=== PATIENT | male | born 1960 | race Caucasian/White ===

== ENCOUNTER 2018-05-14 09:41 | Observation (INO) | payer OTHER, SELFPAY ==
[2018-05-14 09:53] VITALS: BP 124/81; PULSE 90; RESP 18; TEMP 37.8; O2SAT 94
--- NOTE | 2018-05-14 10:05 | DI.RAD_ITS ---
SYMPTOMS/DIAGNOSIS: CHEST PAIN, ? ACUTE DISEASE PA AND LATERAL CHEST: There is a probable small right pleural effusion. A region of infiltration involving the lower lung posteriorly may lie on the left side. The heart is not enlarged. There is some prominence of the right hilum when compared with the left side. The tracheal air column and mediastinum are intact. SUMMARY: Small right pleural effusion. Question left lower lobe pneumonitis. Follow up images to clearing are recommended. Please see the above discussion.
[2018-05-14 10:32] LABS: Abs Immature Grans 0.05 k/cumm (0.0-0.09); Absolute Eosinophil Count 0.08 k/cumm (0.0-0.7); Absolute Lymphocyte Count 1.43 k/cumm (1.2-3.4); Absolute Monocyte Count 1.39 k/cumm (0.11-0.7); Basophils % 0.1; Eosinophils % 0.6; HCT 40.5 % (40.0-50.0); HGB 13.4 g/dL (13.5-17.5); Immature Grans % 0.4; Lymphocytes % 10.5; Mean Corp. HGB Concentration 33.1 g/dL (32.0-36.0); Mean Corpuscular Hemoglobin 29.3 pg (27.0-33.0); Mean Corpuscular Volume 88.6 fL (80-95); Mean Platelet Volume 9.4 fL (8.0-11.0); Monocytes % 10.2; Neutrophils % 78.2; Platelet Count 280 x1000/uL (130-400); RBC 4.57 m/cumm (4.50-6.00); RBC Distribution Width 13.3 % (11.8-14.1); White Blood Cell Count 13.59 k/cumm (4.4-10.8)
[2018-05-14 10:33] LABS: Absolute Basophil Count 0.01 k/cumm (0.0-0.2); Absolute Neutrophil Count 10.63 k/cumm (1.2-6.7)
--- NOTE | 2018-05-14 10:34 | ED.GENADUL_ITS ---
Discharge Plan Disposition Patient Disposition: [facility] INPATIENT Condition: Stable Discharge Details Chief Complaint: Chest Pain Clinical Impression: Pulmonary emboli, Pneumonia Reason For Visit: BILATERAL PULMONARY EMBOLI Admit Date/Time: 05/14/18 18:13 Admit Provider: Rohith Nj Attending Provider: Rohith Nj Primary Care Provider: Silvana Huertas ED Provider: Bisi Swanson Discharge Data Discharge Date/Time-TO BE ENTERED AT DEPARTURE: 05/14/18 19:00 Medical Decision Making 58yo M U who presents with shortness of breath with exertion, cough with chest congestion and chills for 3 weeks, and right-sided chest pain worse with movement, cough and supine for the past 3 days. Admits to recent long car ride approximately 14 hours 2 weeks ago, staying in a closed up musty trailer, and exposure to sick contact with cold. Temp 100. O2 sat 92-94% on room air. Remainder vitals within normal limits. Patient appears nontoxic and in no acute distress. He has diminished breath sounds with crackles at bases bilaterally. He has <1+ pitting edema left lower extremity. Differential diagnosis includes pneumonia, bronchitis, PE, CHF. As symptoms present for a few weeks, associated with cough and chest congestion, MA less likely. EKG notes a rate of 86, sinus, occasional PACs, but no acute ST elevation or depression. QTc 464. QRS 92. Will place an IV, cardiac workup including d-dimer, BNP, chest x-ray and give a DuoNeb and reassess. 1100 --improvement in breath sounds after neb treatment, still noted crackles bases bilaterally. Chest x-ray reviewed with radiologist and notes possible infiltrate in bases. Small right pleural effusion. Will give another neb treatment and a dose of p.o. antibiotics. Troponin negative. 1300 --discussed with radiologist -CT chest notes bilateral upper and lower lobe pulmonary emboli, RV strain, right lower lobe infiltrate vs infarct. Vitals stable at this time. Patient appears nontoxic and comfortable and in no respiratory distress. Will admit for anticoagulation, further workup. 1335 --d/w hospitalist - recommend transfer to [facility] for possible IR/ pulmonology. Pt agreeable to plan. 1435 --discussed with [facility] cardiology -discussed that therapeutic anticoagulation is the standard of care in this case, but if consideration for IR, would have held anticoagulation. Will review the images to discuss whether IR would be recommended and call back. Recommends echocardiogram if possible. 1714 --echo done - d/w cardiology Dr. Ramirez who reviewed echo - no evidence of RV strain, right ventricle function normal. Elevated pulmonary artery pressures. 1834 --d/w [facility] cardiology -- long delay in response after multiple calls to [facility]. As patient has normal troponin, BNP and is hemodynamically stable , recommend that patient be treated medically with therapeutic anticoagulation. They were informed of echo results. Recommend that if patient deteriorates or develops a positive troponin, he can be transferred to [facility]. 1844 --d/w Dr. Nj -accepts patient for admission. HPI General Mode of arrival: ambulatory . Date/Time Provider Initiated Documentation: 05/14/18 10:01 . Limitations to Documentation: no limitations . Information obtained by: patient . HPI Narrative: Patient is a 58-year-old male who presents to the ED with complaint of I think I have pneumonia. He c/o shortness of breath with exertion for the past 2 weeks, associated with cough and chest congestion, and right-sided chest pain that started 3 days ago. Patient denies any sputum production. Patient admits to chills. He states his chest pain is intermittent stabbing, worse with movement, when laying flat, and with coughing. He states his chest pain is 8/10 at its worst and denies any chest pain at present. He denies any radiation of pain. Patient took Advil at 4 AM and 8 AM this morning. Patient states he recently traveled to [place] with a 14-hour car ride but he stopped every 3-4 hours to walk around. He states he was staying in health system at that time and was also exposed to a sick child so thinks he may have been exposed to something. He denies recent surgery , recent antibiotics or recent hospital admission. Past medical history: HLD Surgical history: Knee arthroscopy, Nose repair Social history: Quit tobacco, Occasional ETOH, Denies drugs Meds: Aspirin Allergies: Lisinopril PCP: Silvana Huertas Related Data Home Medications Medication Instructions Recorded Confirmed aspirin [Aspir 81] 81 mg PO DAILY tab-cap 08/03/15 01/03/16 Allergies Allergy/AdvReac Type Severity Reaction Status Date / Time lisinopril Tabs AdvReac dizziness Uncoded 01/03/16 06:55 General Stated Complaint: Chest Pain JERE: 3 Review of Systems Review of Systems All systems reviewed & are unremarkable except as noted in HPI and below Constitutional Reports chills, Denies excessive sweating, Denies fatigue, Denies fever(s), Denies weakness and Denies weight loss Eyes Reports system reviewed and no additional complaints, except as docu and Denies blurry vision ENT Denies vertigo, Denies dizziness, Denies otalgia, Denies nasal congestion, Denies sore throat and Denies throat swelling Cardiovascular Reports chest pain, Denies syncope, Denies rapid heart rate, Reports dyspnea and Reports dyspnea on exertion Respiratory Reports chest congestion, Reports cough, Reports pain with cough, Reports dyspnea and Reports dyspnea on exertion Gastrointestinal Denies abdominal pain, Denies diarrhea and Denies vomiting Genitourinary Denies hematuria, Denies dysuria and Denies flank pain Musculoskeletal Denies back pain and Denies joint swelling Integumentary/Breasts Denies lesions and Denies rash Neurologic Denies behavioral changes, Denies confusion, Denies vertigo, Denies dizziness, Denies syncope and Denies weakness Psychiatric Denies behavioral changes, Denies confusion and Denies depression Endocrine Denies excessive sweating and Denies fatigue Hematologic/Lymphatic Denies easy bruising and Denies lymphadenopathy Allergic/Immunologic Denies throat swelling [facility] Family History Mother Personal history of malignant neoplasm Father Essential hypertension Sister No problems noted. Brother No problems noted. Brother No problems noted. Son Hyperlipidemia Daughter Hyperlipidemia Medical History Benign essential hypertension (Chronic) Hyperlipidemia (Chronic) Overweight (Chronic) Acute medial meniscus tear (Resolved) History of multiple concussions (Resolved) Pain, joint, shoulder (Resolved) Right lumbar radiculopathy (Resolved) prepatellar Bursitis (Resolved) Social History Smoking/Tobacco Use Status: Former Tobacco Use Surgical History Colonoscopy - IV Sedation (Resolved 01/03/16) medial meniscus tear (Resolved) Exam Const General: cooperative and healthy appearing Orientation: alert and awake [facility] Head: normal to inspection Ears: hearing grossly normal bilaterally and external ears normal General nose exam: external nose normal Face and sinus: normal facial exam Mouth: oral mucosae normal Teeth and gingiva: dentition normal Throat: posterior oropharynx normal Eyes General: appearance normal, both eyes and all related structures Eyelids: eyelids normal EOM: EOM intact bilaterally Neck Neck: normal visual inspection Lymphatic: no lymphadenopathy noted Chest Chest: normal inspection of the chest, normal palpation of entire chest wall, no crepitus and no tenderness Resp Effort & Inspection: normal respiratory effort and able to speak in complete sentences Auscultation: crackles bilaterally, diminished lung sounds bilaterally and no wheezes Cardio Rate: regular rate Rhythm: regular rhythm GI Inspection: normal to inspection Palpation: soft, not firm, no guarding, no hepatosplenomegaly, no masses and nontender Auscultation: normal bowel sounds Skin General skin exam: no rashes or lesions noted Neuro General: alert and awake Cognition: normal cognition Speech: speech normal Gait: normal gait Motor: muscle tone normal throughout Sensory Exam: no sensory deficits noted Extrem General: normal to inspection, full ROM, normal capillary refill and edema (<1+ pitting edema LLE) Laterality: left (<1+ pitting edema) Psych Appearance: grossly normal Mental Status: mental status grossly normal Speech and Movement: speech and movement normal Affect: normal affect Thought Process: normal Course 05/14/18 15:23 Blood Blood Culture - Pending 05/14/18 14:10 Blood Blood Culture - Pending Laboratory Tests Range/Units 05/14/18 05/14/18 05/14/18 10:15 10:15 10:15 WBC (4.4-10.8) k/cumm 13.59 H RBC (4.50-6.00) m/cumm 4.57 Hgb (13.5-17.5) g/dL 13.4 L Hct (40.0-50.0) % 40.5 MCV (80-95) fL 88.6 MCH (27.0-33.0) pg 29.3 MCHC (32.0-36.0) g/dL 33.1 RDW (11.8-14.1) % 13.3 Plt Count (130-400) x1000/uL 280 MPV (8.0-11.0) fL 9.4 Immature Gran % 0.4 Neutrophils % 78.2 Lymphocytes % 10.5 Monocytes % 10.2 Eosinophils % 0.6 Basophils % 0.1 Absolute Neutrophils (1.2-6.7) k/cumm 10.63 H Absolute Lymphocytes (1.2-3.4) k/cumm 1.43 Absolute Monocytes (0.11-0.7) k/cumm 1.39 H Absolute Eosinophils (0.0-0.7) k/cumm 0.08 Absolute Basophils (0.0-0.2) k/cumm 0.01 PT (9.3-10.8) sec INR (1.0-3.5) APTT (21.0-31.4) sec D-Dimer (<500) ng/mlFEU Sodium (136-145) mmol/L 137 Potassium (3.5-5.1) mmol/L 3.9 Chloride (98-107) mmol/L 99 Carbon Dioxide (21.0-32.0) mmol/L 26.7 Anion Gap (3-11) mmol/L 11.3 H BUN (7-18) mg/dL 12 Creatinine (0.70-1.30) mg/dL 1.08 Estimated GFR/1.73 m2 (mL/min/1.73m2) >= 60.00 Glucose (70-100) mg/dL 123 H Lactate (0.6-1.4) mmol/L Calcium (8.5-10.1) mg/dL 9.7 Magnesium (1.8-2.4) mg/dL 1.7 L Total Bilirubin (0.2-1.0) mg/dL 0.7 AST (15-37) U/L 24 ALT (12-78) U/L 33 Alkaline Phosphatase (46-116) U/L 64 Troponin I (0.00-0.06) ng/mL < 0.02 NT-Pro-B Natriuret Pep ( - 299) pg/mL 45 Total Protein (6.4-8.2) g/dL 8.6 H Albumin (3.4-5.0) g/dL 3.6 Range/Units 05/14/18 05/14/18 05/14/18 10:15 10:15 15:23 WBC (4.4-10.8) k/cumm RBC (4.50-6.00) m/cumm Hgb (13.5-17.5) g/dL Hct (40.0-50.0) % MCV (80-95) fL MCH (27.0-33.0) pg MCHC (32.0-36.0) g/dL RDW (11.8-14.1) % Plt Count (130-400) x1000/uL MPV (8.0-11.0) fL Immature Gran % Neutrophils % Lymphocytes % Monocytes % Eosinophils % Basophils % Absolute Neutrophils (1.2-6.7) k/cumm Absolute Lymphocytes (1.2-3.4) k/cumm Absolute Monocytes (0.11-0.7) k/cumm Absolute Eosinophils (0.0-0.7) k/cumm Absolute Basophils (0.0-0.2) k/cumm PT (9.3-10.8) sec 10.5 INR (1.0-3.5) 1.1 APTT (21.0-31.4) sec 25.8 D-Dimer (<500) ng/mlFEU 3632 H Sodium (136-145) mmol/L Potassium (3.5-5.1) mmol/L Chloride (98-107) mmol/L Carbon Dioxide (21.0-32.0) mmol/L Anion Gap (3-11) mmol/L BUN (7-18) mg/dL Creatinine (0.70-1.30) mg/dL Estimated GFR/1.73 m2 (mL/min/1.73m2) Glucose (70-100) mg/dL Lactate (0.6-1.4) mmol/L 1.1 Calcium (8.5-10.1) mg/dL Magnesium (1.8-2.4) mg/dL Total Bilirubin (0.2-1.0) mg/dL AST (15-37) U/L ALT (12-78) U/L Alkaline Phosphatase (46-116) U/L Troponin I (0.00-0.06) ng/mL NT-Pro-B Natriuret Pep ( - 299) pg/mL Total Protein (6.4-8.2) g/dL Albumin (3.4-5.0) g/dL Vital Signs Temperature 100.0 F H 05/14/18 09:53 Pulse 90 05/14/18 09:53 Respiratory Rate 18 05/14/18 09:53 Blood Pressure 124/81 05/14/18 09:53 Pulse Oximetry 94 L 05/14/18 09:53 Temperature 100.0 F H 05/14/18 09:53 Temperature Source Temporal Artery Scan 05/14/18 09:53 Pulse 90 05/14/18 09:53 Respiratory Rate 18 05/14/18 09:53 Respiratory Effort 05/14/18 09:55 Respiratory Depth Normal 05/14/18 09:55 Respiratory Pattern Normal 05/14/18 09:55 Blood Pressure 124/81 05/14/18 09:53 Blood Pressure Position Sitting 05/14/18 09:53 Pulse Oximetry 94 L 05/14/18 09:53 Oxygen Delivery Method Room Air 05/14/18 09:53 Oxygen Flow Rate 0 05/14/18 09:53 Pain Level 6 05/14/18 09:53
[2018-05-14] MEDS: Albuterol/Ipratropium 3 ML UPD VIAL UPD (10:42)
[2018-05-14 10:48] LABS: ALT 33 U/L (12-78); AST 24 U/L (15-37); Albumin 3.6 g/dL (3.4-5.0); Alkaline Phosphatase 64 U/L (46-116); Anion Gap 11.3 mmol/L (3-11); BUN 12 mg/dL (7-18); Bilirubin, Total 0.7 mg/dL (0.2-1.0); CO2 26.7 mmol/L (21.0-32.0); CREATININE 1.08 mg/dL (0.70-1.30); Calcium 9.7 mg/dL (8.5-10.1); Chloride 99 mmol/L (98-107); Glucose 123 mg/dL (70-100); Magnesium 1.7 mg/dL (1.8-2.4); Potassium 3.9 mmol/L (3.5-5.1); Sodium 137 mmol/L (136-145); Total Protein 8.6 g/dL (6.4-8.2)
[2018-05-14 10:49] LABS: Troponin I < 0.02 ng/mL (0.00-0.06)
[2018-05-14 11:10] LABS: NT-proBNP 45 pg/mL
[2018-05-14 11:12] LABS: D-Dimer 3632 ng/mlFEU (<500)
[2018-05-14] MEDS: Albuterol 2.5 MG/3 ML INH SOLN VIAL UPD (11:20)
[2018-05-14] MEDS: Doxycycline Hyclate 100 MG CAP PO (11:20)
[2018-05-14 11:49] LABS: INR 1.1 (1.0-3.5); PTT Activated 25.8 sec (21.0-31.4); Prothrombin Time 10.5 sec (9.3-10.8)
--- NOTE | 2018-05-14 12:30 | DI.CT_ITS ---
SYMPTOMS/DIAGNOSIS: HYPOXIA, SHORTNESS OF BREATH, ELEVATED D DIMER, ? PE PE CHEST CTA: CT angiography was performed with multi slice acquisition and multi planar and 3D reconstruction. The study was conducted according to the usual protocol with an intravenous administration of 100 cc's of Omnipaque 350. There are emboli in the upper and lower lobe pulmonary artery branches in both lungs. There is no evidence of a saddle embolus or embolus involving the right and left main pulmonary artery. There are some small pulmonary densities in the left lung base which likely represent regions of atelectasis. There is no evidence of an aortic aneurysm or dissection. Note is made of degenerative changes involving the dorsal spine. No acute bony abnormality is identified. The visualized portions of the liver are intact. The gallbladder is decompressed. The pancreas is unremarkable. The spleen is intact. The kidneys are incompletely demonstrated. The adrenals appear to be intact. SUMMARY: Bilateral upper and lower lobe pulmonary emboli are demonstrated as described above. There is a small right pleural effusion and a region of increased density in the lateral portion of the right lower lobe which could well represent an infarct. An acute pneumonitis could not be excluded. Note is also made of right ventricular strain. Please see the above discussion.
[2018-05-14] MEDS: Omnipaque 350 MG/ML 100 ML BTL IJ (12:33)
[2018-05-14] MEDS: Enoxaparin 100 MG/ML SYR SC (14:11)
--- NOTE | 2018-05-14 15:20 | MERGE_ITS ---
*[facility]* *[facility]* [address] [place] [address] Date of study: 05/14/2018 Transthoracic Echocardiography M-mode, complete 2D, complete spectral Doppler, and color Doppler *STUDY CONCLUSIONS* Summary: 1. Left ventricle: The cavity size was normal. Wall thickness was at the upper limits of normal. Systolic function was normal. The estimated ejection fraction was 60-65%. Wall motion was normal; there were no regional wall motion abnormalities. 2. Right ventricle: The cavity size was at the upper limits of normal. Systolic function was normal. Possible apical RV hypokinesia. 3. Pulmonary arteries: Pulmonary systolic pressure was increased, in the range of 50mm Hg to 55mm Hg. 4. Inferior vena cava: The vessel was patent and normal in size. The respirophasic diameter changes were in the normal range (greater than or equal to 50%), consistent with normal central venous pressure. *PATIENT PRESENTATION* Height: 177.8cm ((70in) ) S/D Pressure: 132 / 78 Weight: 104.3kg ((229.5lb) ) BSA: 2.3m^2 Test start time: 03:30 PM. Test stop time: 04:10 PM. PERFORMING Unknown PERFORMING [facility] DIRECTOR OF COMMUNICATIONS RT Micheal (R)(CT), [facility] ORDERING Bisi Swanson REFERRING Bisi Swanson *PROCEDURE DATA* Procedure information: The patient was identified by two identifiers. This study was interpreted by [facility]. Pertinent images and digital data are archived for permanent storage and are available for subsequent review. Study status: STAT. Transthoracic echocardiography. M-mode, complete 2D, complete spectral Doppler, and color Doppler. A Transthoracic Echocardiogram was performed. Scanning was performed from the parasternal, apical, subcostal, and suprasternal notch acoustic windows. Images were obtained using an [id number] cardiac ultrasound machine. Image quality was adequate. Study completion: The patient tolerated the procedure well. There were no complications. History: PMH: Bilateral PE assess for RV strain. *CARDIAC ANATOMY* Left ventricle: The cavity size was normal. Wall thickness was at the upper limits of normal. Systolic function was normal. The estimated ejection fraction was 60-65%. Wall motion was normal; there were no regional wall motion abnormalities. Findings consistent with diastolic dysfunction. There was no evidence of elevated ventricular filling pressure by Doppler parameters. Aortic valve: Trileaflet; mildly thickened leaflets. Mobility was not restricted. Doppler: Transvalvular velocity was within the normal range. There was no stenosis. There was no significant regurgitation. VTI ratio of LVOT to aortic valve: 0.79. Valve area (VTI): 3cm^2. Indexed valve area (VTI): 1.3cm^2/m^2. Peak velocity ratio of LVOT to aortic valve: 0.77. Valve area (Vmax): 2.9cm^2. Indexed valve area (Vmax): 1.3cm^2/m^2. Mean velocity ratio of LVOT to aortic valve: 0.89. Valve area (Vmean): 3.3cm^2. Indexed valve area (Vmean): 1.4cm^2/m^2. Mean gradient (S): 4.9mm Hg. Peak gradient (S): 10.7mm Hg. Aorta: Aortic root: The aortic root was normal in size. Ascending aorta: The ascending aorta was normal in size. Aortic arch: The aortic arch was mildly dilated (40 mm). Mitral valve: Mildly thickened leaflets. Mobility was not restricted. Doppler: Transvalvular velocity was within the normal range. There was no evidence for stenosis. There was no significant regurgitation. Valve area by pressure half-time: 2.6cm^2. Indexed valve area by pressure half-time: 1.1cm^2/m^2. Left atrium: The atrium was normal in size. Right ventricle: The cavity size was at the upper limits of normal. Systolic function was normal. Possible apical RV hypokinesia. Pulmonic valve: Poorly visualized. Doppler: Transvalvular velocity was within the normal range. There was no evidence for stenosis. There was trivial regurgitation. Tricuspid valve: Structurally normal valve. Doppler: Transvalvular velocity was within the normal range. There was no evidence for stenosis. There was mild regurgitation. Pulmonary artery: Poorly visualized. Pulmonary systolic pressure was increased, in the range of 50mm Hg to 55mm Hg. Right atrium: The atrium was normal in size. Pericardium: There was no pericardial effusion. Systemic veins: Inferior vena cava: Well visualized. The vessel was patent and normal in size. The respirophasic diameter changes were in the normal range (greater than or equal to 50%), consistent with normal central venous pressure. Baseline ECG: Normal sinus rhythm. Measurements Left ventricle Value Reference LV ID, ED, PLAX 5.3 cm 3.5 - 6.0 LV ID, ES, PLAX 3.5 cm 2.1 - 4.0 LV PW thickness, ED, PLAX 1.1 cm LV end-diastolic volume, 1-p A2C 65 ml LV ejection fraction, 1-p A2C 53 % LV end-diastolic volume, 1-p A4C 85 ml LV ejection fraction, 1-p A4C 67 % LV e', lateral 0.154 m/sec LV E/e', lateral 4 LV e', medial 0.078 m/sec LV E/e', medial 8 LV e', average 0.116 m/sec LV E/e', average 5 Ventricular septum Value Reference IVS thickness, ED, PLAX 1.1 cm LVOT Value Reference LVOT ID, A-P 2.2 cm LVOT area 3.8 cm^2 LVOT peak velocity, S 1.26 m/sec LVOT mean velocity, S 0.91 m/sec LVOT VTI, S 19.8 cm LVOT peak gradient, S 6.3 mm Hg LVOT mean gradient, S 3.6 mm Hg Stroke volume (SV), LVOT DP 74 ml Stroke index (SV/bsa), LVOT DP 32 ml/m^2 Aortic valve Value Reference Aortic valve peak velocity, S 1.6 m/sec Aortic valve mean velocity, S 1.02 m/sec Aortic valve VTI, S 25.0 cm Aortic mean gradient, S 4.9 mm Hg Aortic peak gradient, S 10.7 mm Hg VTI ratio, LVOT/AV 0.79 Aortic valve area, VTI 3 cm^2 Velocity ratio, peak, LVOT/AV 0.77 Aortic valve area, peak velocity 2.9 cm^2 Velocity ratio, mean, LVOT/AV 0.89 Aortic valve area, mean velocity 3.3 cm^2 Aortic valve area/bsa, mean velocity 1.4 cm^2/m^2 Aorta Value Reference Aortic root ID, ED 3.6 cm Ascending aorta ID, A-P, S 3.6 cm Left atrium Value Reference LA ID, A-P, ES 3.9 cm LA ID/bsa, A-P 1.7 cm/m^2 <=2.2 LA area, ES, A4C 20.7 cm^2 8.8 - 23.4 LA area, ES, A2C 17 cm^2 LA volume/bsa, ES, 1-p A4C 28 ml/m^2 LA volume, ES, 2-p 55 ml LA volume/bsa, ES, 2-p 24 ml/m^2 LA/aortic root ratio 1.08 Mitral valve Value Reference Mitral E-wave peak velocity 0.63 m/sec Mitral A-wave peak velocity 0.68 m/sec Mitral deceleration time (H) 292 ms 150 - 230 Mitral pressure half-time 85 ms Mitral E/A ratio, peak 0.94 Mitral valve area, PHT, DP 2.6 cm^2 Pulmonary veins Value Reference Pulmonary vein peak velocity, S 0.62 m/sec Pulmonary vein peak velocity, D 0.4 m/sec Pulmonary vein velocity ratio, peak, 1.57 S/D Pulmonary vein A-wave reversal peak 0.85 m/sec velocity Tricuspid valve Value Reference Tricuspid regurg peak velocity 3.7 m/sec Tricuspid peak RV-RA gradient 53.8 mm Hg Right atrium Value Reference RA area, ES, A4C 19.2 cm^2 8.3 - 19.5 Legend: (L) and (H) chantal values outside specified reference range. I have personally reviewed the images and have reviewed and edited the reported findings. Electronically signed by Vik Ramirez 05/14/2018 17:20
[2018-05-14 15:21] VITALS: BP 120/84; PULSE 88; RESP 18; TEMP 36.7; O2SAT 97
[2018-05-14 15:23] VITALS: BP 142/78; PULSE 66; RESP 18; TEMP 36.8; O2SAT 95
[2018-05-14 15:26] LABS: Lactate-non-spesis 1.1 mmol/L (0.6-1.4)
[2018-05-14 19:21] VITALS: BP 144/76; PULSE 94; RESP 20; TEMP 37.9; O2SAT 96
[2018-05-14 19:56] VITALS: BP 144/76; PULSE 94; RESP 20; TEMP 37.9; O2SAT 96
--- NOTE | 2018-05-14 21:45 | W.PM.HP.N ---
Date of service: 05/14/18 Time of Service: 21:45 Assessment and Plan (1) Pulmonary embolism and infarction: Current visit: Yes Status: Acute continue lovenox at 1 mg/kg SC Q12hr. I will move his next dose up by an hour in an attempt to adjust his lovenox dosing to evening and daytime hours so he will not have to get up during the night to receive a dose. However, I think that he is a good candidate for Apixaban therapy and if he is started on Eliquis tomorrow then he will not need to continue the lovenox shots. He would rather take the Apixaban than warfarin and lovenox. It appears that he had a provoked thromboembolism event, i.e. left ankle injury followed by immobilization and he has no signs/symptoms of occult cancer therefore I do not feel that further evaluation for occult malignancy is necessary. History of Present Illness Chief Complaint: Shortness of breath and chest pain, I think I have pneumonia Narrative: 58-year-old male with a history of hyperlipidemia and alleged hypertension. Patient presents to the hospital w/ 2 weeks of exertional dypsnea and 3 days of right sided pleuritic chest pain. 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 He recently traveled to [place], [place] for race around 05/04-05/05. Three days prior to going to [employer] he twised his left ankle while splitting wood and developed acute swelling and ankle pain. He drove 16 hours down to [place] with his crew from [facility] (he is originally from [facility].) and says that he was on his feet a lot standing around the pit crew. He noticed on the first day down there that he was rather short of breath while walking out of the bowl which is the race track. Each day his dyspnea was worse but he attributed this to a cold as he had been around others who were sick. When he returned to [place] (he lives in [place], [place]) he noticed that he could not walk the dog w/out getting out of breath. Beginning Saturday, he was having sharp right sided pleuritic chest pains. He called his PCP on Saturday for an appointment but when his chest pains grew worse today, he decided to come to the ER. Dr. Bisi Swanson evaluate the patient and performed a workup including labs chest x-ray and ultimately a CTA of his chest. He was diagnosed with bilateral pulmonary emboli and a right pleural effusion and a possible right-sided pulmonary infarct. PA and lateral chest x-ray showed a small right pleural effusion and questionable left lower lobe pneumonitis. CTA of the chest demonstrate bilateral upper and lower lobe pulmonary emboli and small right pleural effusion and increased density in the lateral portion of the right lower lobe which was felt to represent an infarct. Also the radiologist suggested the possibility of right ventricular strain. Dr. Swanson indicated that she spoke with cardiology at [facility] and had them review his CTA to evaluate him for possible transfer for acute interventional radiology intravascular thrombolysis. After they reviewed his case and his CTA they decided that he could be medically managed here at [facility]. An echocardiogram was performed and showed normal left ventricular size and function in the right ventricle was at the upper limits of normal with normal systolic function although possible apical RV hypokinesia could not be excluded. Patient has increased pulmonary pressures with a systolic pressure of 50-55 mm. The IVC was patent and normal in size and showed normal respirophasic diameter changes. He was subsequently treated with Lovenox 100 mg subcutaneously and is now admitted for further treatment of his pulmonary embolus. Review of Systems Constitutional Reports as per HPI Cardiovascular Reports as per HPI, Reports chest pain, Reports dyspnea and Reports dyspnea on exertion Respiratory Reports as per HPI, Denies chest congestion, Reports cough (Nonproductive), Denies hemoptysis, Reports dyspnea and Reports dyspnea on exertion Gastrointestinal Reports system reviewed and no additional complaints, except as docu Musculoskeletal Reports system reviewed and no additional complaints, except as docu Hematologic/Lymphatic Reports system reviewed and no additional complaints, except as docu PFSH Family History Mother Personal history of malignant neoplasm Father Essential hypertension Sister No problems noted. Brother No problems noted. Brother No problems noted. Son Hyperlipidemia Daughter Hyperlipidemia Medical History Benign essential hypertension (Chronic) Hyperlipidemia (Chronic) Overweight (Chronic) Acute medial meniscus tear (Resolved) History of multiple concussions (Resolved) Pain, joint, shoulder (Resolved) Right lumbar radiculopathy (Resolved) prepatellar Bursitis (Resolved) Social History Smoking/Tobacco Use Status: Former Tobacco Use Surgical History Colonoscopy - IV Sedation (Resolved 01/03/16) medial meniscus tear (Resolved) Meds Home Medications Medication Instructions Recorded Confirmed Type aspirin [Aspir 81] 81 mg PO DAILY tab-cap 08/03/15 01/03/16 History Allergies Allergy/AdvReac Type Severity Reaction Status Date / Time lisinopril Tabs AdvReac dizziness Uncoded 01/03/16 06:55 Exam Const General: cooperative, healthy appearing, comfortable, no acute distress, well developed and well groomed Nutritional Appearance: overweight Orientation: alert, awake and oriented x3 HENMT Head: normal to inspection, normocephalic and atraumatic Ears: external ears normal and TM's normal bilaterally General nose exam: external nose normal Face and sinus: normal facial exam Mouth: oral mucosae normal Eyes General: appearance normal, both eyes and all related structures Visual Reed: normal visual reed by confrontation Periorbital: periorbital findings normal Eyelids: eyelids normal Conjunctivae: conjunctivae normal Sclera: sclerae normal Cornea: corneas normal Pupils: PERRL and normal by confrontation EOM: EOM intact bilaterally Neck Neck: normal visual inspection, full ROM, no lymphadenopathy, trachea midline, supple and no JVD Thyroid: thyroid normal Carotids: normal carotid upstroke Lymphatic: no lymphadenopathy noted Resp Effort & Inspection: normal respiratory effort and able to speak in complete sentences Auscultation: crackles bilaterally at the base, no rhonchi, no wheezes and no rubs Tactile Fremitus: tactile fremitus absent Cardio Jugular venous pressure: no JVD Palpation: normal PMI Rate: regular rate Rhythm: regular rhythm Heart Sounds: S1 normal, S2 normal, normal, physiologic split S2, no gallops, no murmurs and no rubs Bruits: no abdominal aortic bruits and no carotid bruits Pulses: normal peripheral pulses GI Inspection: normal to inspection Palpation: soft and no hepatosplenomegaly Auscultation: normal bowel sounds Back/Spine/Pelvis Back: no CVA tenderness Cervical Spine: normal cervical lordosis Thoracic/Lumbar Spine: thoracic and lumbar spine normal to inspection Skin General skin exam: no rashes or lesions noted, elasticity normal and turgor normal Lesions: no lesions Rashes: no rashes Trauma: no lacerations or abrasions Wounds: no wounds Neuro General: alert, awake, oriented x3, moves all extremities, normal light touch, pain and propioception, no focal motor deficits, CN's II-XI intact bilaterally and deep tendon reflexes 2+ bilaterally Cognition: normal cognition Speech: speech normal Gait: normal gait Motor: muscle tone normal throughout, strength 5/5 throughout, no pronator drift, no movement abnormalities noted and no fasciculations Sensory Exam: no sensory deficits noted Extrem General: normal to inspection, full ROM, normal capillary refill, no joint enlargement, no calf tenderness bilaterally, no cyanosis, no edema and no pedal edema Psych Appearance: grossly normal and well kempt Mental Status: mental status grossly normal Speech and Movement: speech and movement normal Mood: congruent mood Affect: normal affect Attitude: cooperative Thought Process: normal Thought Content: normal Insight: insight good Judgment: judgment good Results Imaging Chest x-ray: image reviewed CT scan - chest: image reviewed Additional studies: Echocardiogram: Summary: 1. Left ventricle: The cavity size was normal. Wall thickness was at the upper limits of normal. Systolic function was normal. The estimated ejection fraction was 60-65%. Wall motion was normal; there were no regional wall motion abnormalities. 2. Right ventricle: The cavity size was at the upper limits of normal. Systolic function was normal. Possible apical RV hypokinesia. 3. Pulmonary arteries: Pulmonary systolic pressure was increased, in the range of 50mm Hg to 55mm Hg. 4. Inferior vena cava: The vessel was patent and normal in size. The respirophasic diameter changes were in the normal range (greater than or equal to 50%), consistent with normal central venous pressure. Labs : 05/14/18 10:15 05/14/18 10:15 Laboratory Results - last 24 hr 05/14/18 05/14/18 05/14/18 10:15 10:15 10:15 WBC 13.59 H RBC 4.57 Hgb 13.4 L Hct 40.5 MCV 88.6 MCH 29.3 MCHC 33.1 RDW 13.3 Plt Count 280 MPV 9.4 Immature Gran % 0.4 Neutrophils % 78.2 Lymphocytes % 10.5 Monocytes % 10.2 Eosinophils % 0.6 Basophils % 0.1 Absolute Neutrophils 10.63 H Absolute Lymphocytes 1.43 Absolute Monocytes 1.39 H Absolute Eosinophils 0.08 Absolute Basophils 0.01 PT INR APTT D-Dimer Sodium 137 Potassium 3.9 Chloride 99 Carbon Dioxide 26.7 Anion Gap 11.3 H BUN 12 Creatinine 1.08 Estimated GFR/1.73 m2 >= 60.00 Glucose 123 H Lactate Calcium 9.7 Magnesium 1.7 L Total Bilirubin 0.7 AST 24 ALT 33 Alkaline Phosphatase 64 Troponin I < 0.02 NT-Pro-B Natriuret Pep 45 Total Protein 8.6 H Albumin 3.6 05/14/18 05/14/18 05/14/18 10:15 10:15 15:23 WBC RBC Hgb Hct MCV MCH MCHC RDW Plt Count MPV Immature Gran % Neutrophils % Lymphocytes % Monocytes % Eosinophils % Basophils % Absolute Neutrophils Absolute Lymphocytes Absolute Monocytes Absolute Eosinophils Absolute Basophils PT 10.5 INR 1.1 APTT 25.8 D-Dimer 3632 H Sodium Potassium Chloride Carbon Dioxide Anion Gap BUN Creatinine Estimated GFR/1.73 m2 Glucose Lactate 1.1 Calcium Magnesium Total Bilirubin AST ALT Alkaline Phosphatase Troponin I NT-Pro-B Natriuret Pep Total Protein Albumin Last Vital Signs Temp 37.9 C H 05/14/18 19:56 Pulse 94 H 05/14/18 19:56 Resp 20 05/14/18 19:56 BP 144/76 H 05/14/18 19:56 Pulse Ox 96 05/14/18 19:56
--- NOTE | 2018-05-14 21:48 | HPE_ITS ---
Date of service: 05/14/18 Time of Service: 21:45 Assessment and Plan (1) Pulmonary embolism and infarction: Current visit: Yes Status: Acute continue lovenox at 1 mg/kg SC Q12hr. I will move his next dose up by an hour in an attempt to adjust his lovenox dosing to evening and daytime hours so he will not have to get up during the night to receive a dose. However, I think that he is a good candidate for Apixaban therapy and if he is started on Eliquis tomorrow then he will not need to continue the lovenox shots. He would rather take the Apixaban than warfarin and lovenox. It appears that he had a provoked thromboembolism event, i.e. left ankle injury followed by immobilization and he has no signs/symptoms of occult cancer therefore I do not feel that further evaluation for occult malignancy is necessary. History of Present Illness Chief Complaint: Shortness of breath and chest pain, I think I have pneumonia Narrative: 58-year-old male with a history of hyperlipidemia and alleged hypertension. Patient presents to the hospital w/ 2 weeks of exertional dypsnea and 3 days of right sided pleuritic chest pain. 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 He recently traveled to [place], [place] for race around 05/04-05/05. Three days prior to going to [employer] he twised his left ankle while splitting wood and developed acute swelling and ankle pain. He drove 16 hours down to [place] with his crew from [facility] (he is originally from [facility] and says that he was on his feet a lot standing around the pit crew. He noticed on the first day down there that he was rather short of breath while walking out of the bowl which is the race track. Each day his dyspnea was worse but he attributed this to a cold as he had been around others who were sick. When he returned to [place] (he lives in [place], [place]) he noticed that he could not walk the dog w /out getting out of breath. Beginning Saturday, he was having sharp right sided pleuritic chest pains. He called his PCP on Saturday for an appointment but when his chest pains grew worse today, he decided to come to the ER. Dr. Bisi Swanson evaluate the patient and performed a workup including labs chest x-ray and ultimately a CTA of his chest. He was diagnosed with bilateral pulmonary emboli and a right pleural effusion and a possible right-sided pulmonary infarct. PA and lateral chest x-ray showed a small right pleural effusion and questionable left lower lobe pneumonitis. CTA of the chest demonstrate bilateral upper and lower lobe pulmonary emboli and small right pleural effusion and increased density in the lateral portion of the right lower lobe which was felt to represent an infarct. Also the radiologist suggested the possibility of right ventricular strain. Dr. Swanson indicated that she spoke with cardiology at [facility] and had them review his CTA to evaluate him for possible transfer for acute interventional radiology intravascular thrombolysis. After they reviewed his case and his CTA they decided that he could be medically managed here at [facility]. An echocardiogram was performed and showed normal left ventricular size and function in the right ventricle was at the upper limits of normal with normal systolic function although possible apical RV hypokinesia could not be excluded. Patient has increased pulmonary pressures with a systolic pressure of 50-55 mm. The IVC was patent and normal in size and showed normal respirophasic diameter changes. He was subsequently treated with Lovenox 100 mg subcutaneously and is now admitted for further treatment of his pulmonary embolus. Review of Systems Constitutional Reports as per HPI Cardiovascular Reports as per HPI, Reports chest pain, Reports dyspnea and Reports dyspnea on exertion Respiratory Reports as per HPI, Denies chest congestion, Reports cough (Nonproductive), Denies hemoptysis, Reports dyspnea and Reports dyspnea on exertion Gastrointestinal Reports system reviewed and no additional complaints, except as docu Musculoskeletal Reports system reviewed and no additional complaints, except as docu Hematologic/Lymphatic Reports system reviewed and no additional complaints, except as docu PFSH Family History Mother Personal history of malignant neoplasm Father Essential hypertension Sister No problems noted. Brother No problems noted. Brother No problems noted. Son Hyperlipidemia Daughter Hyperlipidemia Medical History Benign essential hypertension (Chronic) Hyperlipidemia (Chronic) Overweight (Chronic) Acute medial meniscus tear (Resolved) History of multiple concussions (Resolved) Pain, joint, shoulder (Resolved) Right lumbar radiculopathy (Resolved) prepatellar Bursitis (Resolved) Social History Smoking/Tobacco Use Status: Former Tobacco Use Surgical History Colonoscopy - IV Sedation (Resolved 01/03/16) medial meniscus tear (Resolved) Meds Home Medications Medication Instructions Recorded Confirmed Type aspirin [Aspir 81] 81 mg PO DAILY tab-cap 08/03/15 01/03/16 History Allergies Allergy/AdvReac Type Severity Reaction Status Date / Time lisinopril Tabs AdvReac dizziness Uncoded 01/03/16 06:55 Exam Const General: cooperative, healthy appearing, comfortable, no acute distress, well developed and well groomed Nutritional Appearance: overweight Orientation: alert, awake and oriented x3 HENMT Head: normal to inspection, normocephalic and atraumatic Ears: external ears normal and TM's normal bilaterally General nose exam: external nose normal Face and sinus: normal facial exam Mouth: oral mucosae normal Eyes General: appearance normal, both eyes and all related structures Visual Reed: normal visual reed by confrontation Periorbital: periorbital findings normal Eyelids: eyelids normal Conjunctivae: conjunctivae normal Sclera: sclerae normal Cornea: corneas normal Pupils: PERRL and normal by confrontation EOM: EOM intact bilaterally Neck Neck: normal visual inspection, full ROM, no lymphadenopathy, trachea midline, supple and no JVD Thyroid: thyroid normal Carotids: normal carotid upstroke Lymphatic: no lymphadenopathy noted Resp Effort & Inspection: normal respiratory effort and able to speak in complete sentences Auscultation: crackles bilaterally at the base, no rhonchi, no wheezes and no rubs Tactile Fremitus: tactile fremitus absent Cardio Jugular venous pressure: no JVD Palpation: normal PMI Rate: regular rate Rhythm: regular rhythm Heart Sounds: S1 normal, S2 normal, normal, physiologic split S2, no gallops, no murmurs and no rubs Bruits: no abdominal aortic bruits and no carotid bruits Pulses: normal peripheral pulses GI Inspection: normal to inspection Palpation: soft and no hepatosplenomegaly Auscultation: normal bowel sounds Back/Spine/Pelvis Back: no CVA tenderness Cervical Spine: normal cervical lordosis Thoracic/Lumbar Spine: thoracic and lumbar spine normal to inspection Skin General skin exam: no rashes or lesions noted, elasticity normal and turgor normal Lesions: no lesions Rashes: no rashes Trauma: no lacerations or abrasions Wounds: no wounds Neuro General: alert, awake, oriented x3, moves all extremities, normal light touch, pain and propioception, no focal motor deficits, CN's II-XI intact bilaterally and deep tendon reflexes 2+ bilaterally Cognition: normal cognition Speech: speech normal Gait: normal gait Motor: muscle tone normal throughout, strength 5/5 throughout, no pronator drift , no movement abnormalities noted and no fasciculations Sensory Exam: no sensory deficits noted Extrem General: normal to inspection, full ROM, normal capillary refill, no joint enlargement, no calf tenderness bilaterally, no cyanosis, no edema and no pedal edema Psych Appearance: grossly normal and well kempt Mental Status: mental status grossly normal Speech and Movement: speech and movement normal Mood: congruent mood Affect: normal affect Attitude: cooperative Thought Process: normal Thought Content: normal Insight: insight good Judgment: judgment good Results Imaging Chest x-ray: image reviewed CT scan - chest: image reviewed Additional studies: Echocardiogram: Summary: 1. Left ventricle: The cavity size was normal. Wall thickness was at the upper limits of normal. Systolic function was normal. The estimated ejection fraction was 60-65%. Wall motion was normal; there were no regional wall motion abnormalities. 2. Right ventricle: The cavity size was at the upper limits of normal. Systolic function was normal. Possible apical RV hypokinesia. 3. Pulmonary arteries: Pulmonary systolic pressure was increased, in the range of 50mm Hg to 55mm Hg. 4. Inferior vena cava: The vessel was patent and normal in size. The respirophasic diameter changes were in the normal range (greater than or equal to 50%), consistent with normal central venous pressure. Labs : 05/14/18 10:15 05/14/18 10:15 Laboratory Results - last 24 hr 05/14/18 05/14/18 05/14/18 10:15 10:15 10:15 WBC 13.59 H RBC 4.57 Hgb 13.4 L Hct 40.5 MCV 88.6 MCH 29.3 MCHC 33.1 RDW 13.3 Plt Count 280 MPV 9.4 Immature Gran % 0.4 Neutrophils % 78.2 Lymphocytes % 10.5 Monocytes % 10.2 Eosinophils % 0.6 Basophils % 0.1 Absolute Neutrophils 10.63 H Absolute Lymphocytes 1.43 Absolute Monocytes 1.39 H Absolute Eosinophils 0.08 Absolute Basophils 0.01 PT INR APTT D-Dimer Sodium 137 Potassium 3.9 Chloride 99 Carbon Dioxide 26.7 Anion Gap 11.3 H BUN 12 Creatinine 1.08 Estimated GFR/1.73 m2 >= 60.00 Glucose 123 H Lactate Calcium 9.7 Magnesium 1.7 L Total Bilirubin 0.7 AST 24 ALT 33 Alkaline Phosphatase 64 Troponin I < 0.02 NT-Pro-B Natriuret Pep 45 Total Protein 8.6 H Albumin 3.6 05/14/18 05/14/18 05/14/18 10:15 10:15 15:23 WBC RBC Hgb Hct MCV MCH MCHC RDW Plt Count MPV Immature Gran % Neutrophils % Lymphocytes % Monocytes % Eosinophils % Basophils % Absolute Neutrophils Absolute Lymphocytes Absolute Monocytes Absolute Eosinophils Absolute Basophils PT 10.5 INR 1.1 APTT 25.8 D-Dimer 3632 H Sodium Potassium Chloride Carbon Dioxide Anion Gap BUN Creatinine Estimated GFR/1.73 m2 Glucose Lactate 1.1 Calcium Magnesium Total Bilirubin AST ALT Alkaline Phosphatase Troponin I NT-Pro-B Natriuret Pep Total Protein Albumin Last Vital Signs Temp 37.9 C H 05/14/18 19:56 Pulse 94 H 05/14/18 19:56 Resp 20 05/14/18 19:56 BP 144/76 H 05/14/18 19:56 Pulse Ox 96 05/14/18 19:56
[2018-05-14 23:25] VITALS: BP 116/80; PULSE 92; RESP 16; TEMP 38.2; O2SAT 94
[2018-05-15] VITALS (10 sets, daily range): BP systolic 107–130; BP diastolic 64–78; PULSE 61–85; RESP 16–22; TEMP 36.5–37.6; O2SAT 93–97
[2018-05-15] MEDS: Acetaminophen 325 MG TAB PO ×5 (01:07→21:28)
[2018-05-15] MEDS: Enoxaparin 100 MG/ML SYR SC ×2 (01:08→12:10)
[2018-05-15 07:13] LABS: Abs Immature Grans 0.04 k/cumm (0.0-0.09); Absolute Basophil Count 0.03 k/cumm (0.0-0.2); Absolute Eosinophil Count 0.06 k/cumm (0.0-0.7); Absolute Lymphocyte Count 2.05 k/cumm (1.2-3.4); Absolute Monocyte Count 1.68 k/cumm (0.11-0.7); Basophils % 0.2; Eosinophils % 0.4; HCT 39.2 % (40.0-50.0); HGB 12.8 g/dL (13.5-17.5); Immature Grans % 0.3; Lymphocytes % 14.5; Mean Corp. HGB Concentration 32.7 g/dL (32.0-36.0); Mean Corpuscular Hemoglobin 29.1 pg (27.0-33.0); Mean Corpuscular Volume 89.1 fL (80-95); Mean Platelet Volume 9.2 fL (8.0-11.0); Monocytes % 11.9; Neutrophils % 72.7; Platelet Count 290 x1000/uL (130-400); RBC Distribution Width 13.2 % (11.8-14.1); White Blood Cell Count 14.12 k/cumm (4.4-10.8)
[2018-05-15 07:14] LABS: Absolute Neutrophil Count 10.27 k/cumm (1.2-6.7)
[2018-05-15 07:25] LABS: Anion Gap 13.2 mmol/L (3-11); BUN 12 mg/dL (7-18); CO2 23.8 mmol/L (21.0-32.0); CREATININE 0.94 mg/dL (0.70-1.30); Calcium 9.4 mg/dL (8.5-10.1); Chloride 99 mmol/L (98-107); Glucose 108 mg/dL (70-100); Magnesium 1.9 mg/dL (1.8-2.4); Sodium 136 mmol/L (136-145)
[2018-05-15 11:45] LABS: Troponin I < 0.02 ng/mL (0.00-0.06)
--- NOTE | 2018-05-15 11:56 | PDOC.CMIN ---
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 He lives with his spouse here in [place], [place]. He is independent at baseline. CURRENT FUNCTIONAL STATUS:: Javier is sitting up in the chair he is alert and engaged. Javier describes the events that led to admission. He states he only sees the MD when he has to. He reports that he has been pretty healthy. He prefers to only use Eliquis as he has friends in the past that have not done well on other medications and he would prefer not to try them. He is currently on Lovenox and will transition to oral medication. ADVANCE DIRECTIVES:: None on file he declines at this time Has patient been provided with information about the portal?: Yes Did the patient sign up for the portal?: No CODE STATUS:: Full Code INSURANCE COVERAGE / FINANCIAL ISSUES:: Babak Simpson CURRENT HOME/COMMUNITY SERVICES/EQUIPMENT:: None at this time PRIMARY CARE PHYSICIAN:: Silvana Huertas NP POTENTIAL DISCHARGE NEEDS:: Transition to oral treatment for PE's, he has a follow up appointment with PCP on Saturday this week he would like to try and keep the appointment. PATIENT/FAMILY EDUCATION NEEDS:: Discharge education, limitaitons and follow up plan of care including ask me three discussion and self management. ANTICIPATED BARRIERS TO DISCHARGE:: None identified at this time. TRANSPORTATION:: Via private car with spouse at time of discharge. PLAN:: Anticipate no change in Javier status today. He will have a LE u/s he is receiving Lovenox BID and will transition to Eliquis prior to discharge. Anticipate no other services at time of discharge. Eliquis is covered under his insurance. CM will contact his pharmacy to determine copay and fax a presciption,
--- NOTE | 2018-05-15 12:22 | INITIAL_ITS ---
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 He lives with his spouse here in [place], [place]. He is independent at baseline. CURRENT FUNCTIONAL STATUS:: Javier is sitting up in the chair he is alert and engaged. Javier describes the events that led to admission. He states he only sees the MD when he has to. He reports that he has been pretty healthy. He prefers to only use Eliquis as he has friends in the past that have not done well on other medications and he would prefer not to try them. He is currently on Lovenox and will transition to oral medication. ADVANCE DIRECTIVES:: None on file he declines at this time Has patient been provided with information about the portal?: Yes Did the patient sign up for the portal?: No CODE STATUS:: Full Code INSURANCE COVERAGE / FINANCIAL ISSUES:: Babak Simpson CURRENT HOME/COMMUNITY SERVICES/EQUIPMENT:: None at this time PRIMARY CARE PHYSICIAN:: Silvana Huertas NP POTENTIAL DISCHARGE NEEDS:: Transition to oral treatment for PE's, he has a follow up appointment with PCP on Saturday this week he would like to try and keep the appointment. PATIENT/FAMILY EDUCATION NEEDS:: Discharge education, limitaitons and follow up plan of care including ask me three discussion and self management. ANTICIPATED BARRIERS TO DISCHARGE:: None identified at this time. TRANSPORTATION:: Via private car with spouse at time of discharge. PLAN:: Anticipate no change in Javier status today. He will have a LE u/s he is receiving Lovenox BID and will transition to Eliquis prior to discharge. Anticipate no other services at time of discharge. Eliquis is covered under his insurance. CM will contact his pharmacy to determine copay and fax a presciption ,
--- NOTE | 2018-05-15 14:39 | W.PM.DS.N ---
Date of service: 05/16/18 Time of Service: 11:48 DS: Diagnosis Discharge Diagnosis (1) Pulmonary embolism and infarction: Status: Acute (2) Pleuritic chest pain: Status: Acute (3) Pulmonary hypertension: Status: Acute (4) Other and unspecified hyperlipidemia: Status: Chronic (5) Essential hypertension: Status: Chronic (6) Adult BMI > 30: Status: Chronic Discharge Plan Disposition Patient Disposition: HOME Condition: Stable Discharge Details Reason For Visit: BILATERAL PULMONARY EMBOLI Admit Date/Time: 05/14/18 18:13 Admit Provider: Rohith Nj Attending Provider: Rohith Nj Primary Care Provider: Silvana Huertas Hospital Course Hospital Course: Mr Schrader is a 58 year old male with PMHx of hypertension, hyperlipidemia, obesity who presented to [facility] ED and was admitted to [facility] on 05/15/18 with pleuritic chest pain due to acute bilateral pulmonary emboli. These were likely provoked as the patient describes both a recent left ankle injury as well as a lengthy car trip to [place]. The patient was suspected to have right ventricular strain by CT - however, his echocardiogram did not confirm this finding. It does appear that the patient has a component of acute pulmonary hypertension, most likely due to the acute PE's, on the echocardiogram. He does not require oxygen as verified by exercise oxymetry. He had not had any arrhythmic events on telemetry. He does not appear to have any DVT's in his LE's at this time (it is suspected that he did, in fact, had a LLE DVT which had embolized). He was treated with therapeutic lovenox for 24 hours and transitioned to eliquis - case management verified that it is covered by his insurance. The patient's pleuritic chest pain remains a concern, and he does have pulmonary infarcts on CT, but there is no evidence of pneumonia, so he is not being discharged on antibiotics. He is, however, being discharged with an incentive spirometer. He was advised not to use NSAIDs for pain control, was offered lidocaine patches, but prefers to use tylenol. He is hemodynamically stable and is deemed stable for discharge home. He will have to follow up with his PCP, hematology, as well as pulmonology as outpatient. Home Meds and New Rx's Prescriptions: New apixaban [Eliquis] 5 mg tablet See Label Instructions .ROUTE .COMPLEX Qty: 74 RF: 0 Discontinued aspirin [Aspir-81] 81 MG tablet,delayed release (DR/EC) 81 mg PO DAILY RF: 0 Discharge Instructions Instructions: Apixaban (By mouth), Pulmonary Embolism (DC), Pleurisy (DC), How to Use an Incentive Spirometer (DC), Pulmonary Arterial Hypertension (DC) Additional Instructions: Return to the hospital with any fever, bleeding, chest pain, or shortness of breath. Referrals: Silvana Huertas NP [Primary Care Provider] - Zoë Sanches MD [ NON-[facility] STAFF PHYSICIAN] - Activity:: Activity as Tolerated Equipment/Supplies:: No Equipment Needed Diet:: Normal Diet Discharge Orders Discharge Orders: Discharge Order (Routine); Ordered 05/16/18 Ordered By: Jesusita Frank Exam Narrative Exam Narrative: General: Pleasant middle-aged male, walking in the hallway without oxygen Neurological: A&Ox3, no focal deficits Psychiatric: No bruises or rashes Skin: intact HEENT: EOMI, MMM, no goiter or JVD Cardiovascular: RRR, no m/r/g Lungs: CTAB - diminished at bases Gastrointestinal: abdomen soft, nontender, nondistended Extremities: trace edema in BLE's, no clubbing/cyanosis DS: Data Vitals/I&O Vitals and I&O: Vital Signs Temperature 37.1 C 05/15/18 11:48 Temperature Source Tympanic 05/15/18 11:48 Pulse 77 05/15/18 11:48 Pulse Rhythm Regular 05/15/18 09:30 Respiratory Rate 17 05/15/18 11:48 Respiratory Effort Short of Breath 05/15/18 09:30 Respiratory Depth Normal 05/15/18 09:30 Respiratory Pattern Normal 05/15/18 09:30 Blood Pressure 114/73 05/15/18 11:48 Blood Pressure Position Sitting 05/14/18 09:53 Pulse Oximetry 96 05/15/18 11:48 Oxygen Delivery Method Room Air 05/15/18 11:48 Oxygen Flow Rate 0 05/15/18 11:48 Pain Level 3 05/15/18 12:11 Intake & Output 05/14/18 05/15/18 05/15/18 23:59 11:59 23:59 Intake Total 240 / 240 120 / 120 450 / 450 Balance 240 / 240 120 / 120 450 / 450 Weight 104.326 kg 104.9 kg Intake: Oral 240 / 240 120 / 120 450 / 450 Other: Urine Appearance Clear Comment material handler 1st shift nurse reprted patient had been urinating throughout the night. Voiding Methods Toilet Completed studies during hospitalization [Text1]: CXR 05/14/18: : Small right pleural effusion. Question left lower lobe pneumonitis. Follow up images to clearing are recommended. Please see the above discussion. CTA chest 05/14/18: Bilateral upper and lower lobe pulmonary emboli are demonstrated as described above. There is a small right pleural effusion and a region of increased density in the lateral portion of the right lower lobe which could well represent an infarct. An acute pneumonitis could not be excluded. Note is also made of right ventricular strain. Please see the above discussion. Echo 05/14/18: 1. Left ventricle: The cavity size was normal. Wall thickness was at the upper limits of normal. Systolic function was normal. The estimated ejection fraction was 60-65%. Wall motion was normal; there were no regional wall motion abnormalities. 2. Right ventricle: The cavity size was at the upper limits of normal. Systolic function was normal. Possible apical RV hypokinesia. 3. Pulmonary arteries: Pulmonary systolic pressure was increased, in the range of 50mm Hg to 55mm Hg. 4. Inferior vena cava: The vessel was patent and normal in size. The respirophasic diameter changes were in the normal range (greater than or equal to 50%), consistent with normal central venous pressure. US venous BLE's 05/15/18: There is no evidence of DVT. Labs on day of discharge: Labs from last 24 hours 05/15/18 05/15/18 05/15/18 07:00 07:00 07:00 WBC 14.12 H RBC 4.40 L Hgb 12.8 L Hct 39.2 L MCV 89.1 MCH 29.1 MCHC 32.7 RDW 13.2 Plt Count 290 MPV 9.2 Immature Gran % 0.3 Neutrophils % 72.7 Lymphocytes % 14.5 Monocytes % 11.9 Eosinophils % 0.4 Basophils % 0.2 Absolute Neutrophils 10.27 H Absolute Lymphocytes 2.05 Absolute Monocytes 1.68 H Absolute Eosinophils 0.06 Absolute Basophils 0.03 Sodium 136 Potassium 4.0 Chloride 99 Carbon Dioxide 23.8 Anion Gap 13.2 H BUN 12 Creatinine 0.94 Estimated GFR/1.73 m2 >= 60.00 Glucose 108 H Lactate Calcium 9.4 Magnesium 1.9 Troponin I < 0.02 05/14/18 15:23 WBC RBC Hgb Hct MCV MCH MCHC RDW Plt Count MPV Immature Gran % Neutrophils % Lymphocytes % Monocytes % Eosinophils % Basophils % Absolute Neutrophils Absolute Lymphocytes Absolute Monocytes Absolute Eosinophils Absolute Basophils Sodium Potassium Chloride Carbon Dioxide Anion Gap BUN Creatinine Estimated GFR/1.73 m2 Glucose Lactate 1.1 Calcium Magnesium Troponin I 05/14/18 15:23 Blood Blood Culture - Pending 05/14/18 14:10 Blood Blood Culture - Pending Preliminary micro results at discharge 05/14/18 15:23 Blood Culture - Pending Blood 05/14/18 14:10 Blood Culture - Pending Blood
--- NOTE | 2018-05-15 16:00 | DI.US_ITS ---
SYMPTOMS/DIAGNOSIS: BILATERAL PULMONARY EMBOLI, ? DVT RIGHT LEG ULTRASOUND: The study was carried out according to the usual protocol. The superficial, femoral, popliteal and proximal trifurcation in the superior portion of the leg are well seen. Good compressibility is noted throughout. Flow is demonstrated and flow augmentation was easily elicited with calf compression. SUMMARY: There is no evidence of DVT. LEFT LEG ULTRASOUND: The study was carried out according to the usual protocol. The superficial, femoral, popliteal and proximal trifurcation in the superior portion of the leg are well seen. Good compressibility is noted throughout. Flow is demonstrated and flow augmentation was easily elicited with calf compression. SUMMARY: There is no evidence of DVT.
--- NOTE | 2018-05-15 18:56 | W.PM.PROGNOT ---
Date of Service Date of service: 05/15/18 Time of Service: 11:25 Assessment and Plan (1) Pulmonary embolism and infarction: Current visit: Yes Status: Acute No evidence of DVT at this time, but the suspicion is that this all started with a DVT in LLE post injury and in light of recent car travel to [place]. Checked with case management - the patient's insurance covers Employee Benefit Plans. Switch patient to [facility] with plans to discharge home tomorrow post ambulatory pulse ox assessment. (2) Pulmonary hypertension: Current visit: Yes Status: Acute In light of Number 1. No evidence of R heart strain on echo. Will need to follow up with pulmonology as outpatient. (3) Pleuritic chest pain: Current visit: Yes Status: Acute Patient is told not to take NSAIDS. He refuses lidoderm patch. Rx incentive spirometry. No evidence of pneumonia - likely due to lung infarcts. (4) Other and unspecified hyperlipidemia: Current visit: Yes Status: Chronic F/u as outpatient (5) Essential hypertension: Current visit: Yes Status: Chronic Follow up as outpatient. (6) Discharge planning issues: Current visit: Yes Status: Acute Likely discharge home tomorrow. Will need outpatient appointments with PCP, hem/onc, and pulmonary. Subjective Interval history since last seen: The patient complains of pleuritic R-sided chest pain, but refuses anything other than tylenol for the pain. Denies dizziness, complains of shortness of breath on exertion. Denies nausea, vomiting. Is feeling better today than he was feeling yesterday. Exam Narrative Exam Narrative: General: Pleasant middle-aged male, sitting in a chair, not in acute distress Neurological: A&Ox3, no focal deficits Psychiatric: No bruises or rashes Skin: intact HEENT: EOMI, MMM, no goiter or JVD Cardiovascular: RRR, no m/r/g Lungs: CTAB - diminished at bases Gastrointestinal: abdomen soft, nontender, nondistended Extremities: trace edema in BLE's, no clubbing/cyanosis Objective Objective Clinical Data: Abnormal lab results 05/15/18 05/15/18 Range/Units 07:00 07:00 WBC 14.12 H (4.4-10.8) k/cumm RBC 4.40 L (4.50-6.00) m/cumm Hgb 12.8 L (13.5-17.5) g/dL Hct 39.2 L (40.0-50.0) % Absolute Neutrophils 10.27 H (1.2-6.7) k/cumm Absolute Monocytes 1.68 H (0.11-0.7) k/cumm Anion Gap 13.2 H (3-11) mmol/L Glucose 108 H (70-100) mg/dL Vital Signs Temperature 37.5 C 05/15/18 17:57 Temperature Source Tympanic 05/15/18 17:57 Pulse 81 05/15/18 17:57 Pulse Rhythm Regular 05/15/18 09:30 Respiratory Rate 22 05/15/18 17:57 Respiratory Effort Short of Breath 05/15/18 09:30 Respiratory Depth Normal 05/15/18 09:30 Respiratory Pattern Normal 05/15/18 09:30 Blood Pressure 121/77 05/15/18 17:57 Blood Pressure Position Sitting 05/14/18 09:53 Pulse Oximetry 97 05/15/18 17:57 Oxygen Delivery Method Room Air 05/15/18 17:57 Oxygen Flow Rate 0 05/15/18 17:57 Pain Level 3 05/15/18 12:11 Intake & Output 05/14/18 05/15/18 05/15/18 23:59 11:59 23:59 Intake Total 240 / 240 120 / 120 450 / 450 Balance 240 / 240 120 / 120 450 / 450 Weight 104.326 kg 104.9 kg Intake: Oral 240 / 240 120 / 120 450 / 450 Other: Urine Appearance Clear Comment aviation ordnance officer nurse reprted patient had been urinating throughout the night. Voiding Methods Toilet Laboratory Results WBC 14.12 k/cumm (4.4-10.8) H 05/15/18 07:00 RBC 4.40 m/cumm (4.50-6.00) L 05/15/18 07:00 Hgb 12.8 g/dL (13.5-17.5) L 05/15/18 07:00 Hct 39.2 % (40.0-50.0) L 05/15/18 07:00 MCV 89.1 fL (80-95) 05/15/18 07:00 MCH 29.1 pg (27.0-33.0) 05/15/18 07:00 MCHC 32.7 g/dL (32.0-36.0) 05/15/18 07:00 RDW 13.2 % (11.8-14.1) 05/15/18 07:00 Plt Count 290 x1000/uL (130-400) 05/15/18 07:00 MPV 9.2 fL (8.0-11.0) 05/15/18 07:00 Immature Gran % 0.3 05/15/18 07:00 Neutrophils % 72.7 05/15/18 07:00 Lymphocytes % 14.5 05/15/18 07:00 Monocytes % 11.9 05/15/18 07:00 Eosinophils % 0.4 05/15/18 07:00 Basophils % 0.2 05/15/18 07:00 Absolute Neutrophils 10.27 k/cumm (1.2-6.7) H 05/15/18 07:00 Absolute Lymphocytes 2.05 k/cumm (1.2-3.4) 05/15/18 07:00 Absolute Monocytes 1.68 k/cumm (0.11-0.7) H 05/15/18 07:00 Absolute Eosinophils 0.06 k/cumm (0.0-0.7) 05/15/18 07:00 Absolute Basophils 0.03 k/cumm (0.0-0.2) 05/15/18 07:00 PT 10.5 sec (9.3-10.8) 05/14/18 10:15 INR 1.1 (1.0-3.5) 05/14/18 10:15 APTT 25.8 sec (21.0-31.4) 05/14/18 10:15 D-Dimer 3632 ng/mlFEU (<500) H 05/14/18 10:15 Sodium 136 mmol/L (136-145) 05/15/18 07:00 Potassium 4.0 mmol/L (3.5-5.1) 05/15/18 07:00 Chloride 99 mmol/L (98-107) 05/15/18 07:00 Carbon Dioxide 23.8 mmol/L (21.0-32.0) 05/15/18 07:00 Anion Gap 13.2 mmol/L (3-11) H 05/15/18 07:00 BUN 12 mg/dL (7-18) 05/15/18 07:00 Creatinine 0.94 mg/dL (0.70-1.30) 05/15/18 07:00 Estimated GFR/1.73 m2 >= 60.00 (mL/min/1.73m2) 05/15/18 07:00 Glucose 108 mg/dL (70-100) H 05/15/18 07:00 Lactate 1.1 mmol/L (0.6-1.4) 05/14/18 15:23 Calcium 9.4 mg/dL (8.5-10.1) 05/15/18 07:00 Magnesium 1.9 mg/dL (1.8-2.4) 05/15/18 07:00 Total Bilirubin 0.7 mg/dL (0.2-1.0) 05/14/18 10:15 AST 24 U/L (15-37) 05/14/18 10:15 ALT 33 U/L (12-78) 05/14/18 10:15 Alkaline Phosphatase 64 U/L (46-116) 05/14/18 10:15 Troponin I < 0.02 ng/mL (0.00-0.06) 05/15/18 07:00 NT-Pro-B Natriuret Pep 45 pg/mL (-299) 05/14/18 10:15 Total Protein 8.6 g/dL (6.4-8.2) H 05/14/18 10:15 Albumin 3.6 g/dL (3.4-5.0) 05/14/18 10:15
[2018-05-15] MEDS: Apixaban 5 MG TAB 10 MG PO (23:41)
[2018-05-16] MEDS: Acetaminophen 325 MG TAB PO ×3 (01:03→09:03)
[2018-05-16 04:20] VITALS: BP 101/65; PULSE 80; RESP 16; TEMP 36.7; O2SAT 97
[2018-05-16 07:13] VITALS: PULSE 80
[2018-05-16 07:18] LABS: Abs Immature Grans 0.05 k/cumm (0.0-0.09); Absolute Eosinophil Count 0.23 k/cumm (0.0-0.7); Absolute Neutrophil Count 8.66 k/cumm (1.2-6.7); Basophils % 0.2; Eosinophils % 1.9; HCT 36.5 % (40.0-50.0); Immature Grans % 0.4; Lymphocytes % 15.3; Mean Corp. HGB Concentration 32.9 g/dL (32.0-36.0); Mean Corpuscular Hemoglobin 29.4 pg (27.0-33.0); Mean Corpuscular Volume 89.5 fL (80-95); Mean Platelet Volume 9.7 fL (8.0-11.0); Monocytes % 11.9; Neutrophils % 70.3; Platelet Count 302 x1000/uL (130-400); RBC 4.08 m/cumm (4.50-6.00); RBC Distribution Width 12.8 % (11.8-14.1); White Blood Cell Count 12.32 k/cumm (4.4-10.8)
[2018-05-16 07:26] LABS: Absolute Basophil Count 0.02 k/cumm (0.0-0.2); Absolute Lymphocyte Count 1.88 k/cumm (1.2-3.4); Absolute Monocyte Count 1.47 k/cumm (0.11-0.7)
[2018-05-16 07:30] LABS: Anion Gap 8.2 mmol/L (3-11); BUN 12 mg/dL (7-18); CO2 27.8 mmol/L (21.0-32.0); CREATININE 0.88 mg/dL (0.70-1.30); Calcium 8.7 mg/dL (8.5-10.1); Chloride 99 mmol/L (98-107); Glucose 94 mg/dL (70-100); Magnesium 2.2 mg/dL (1.8-2.4); Sodium 135 mmol/L (136-145)
[2018-05-16 07:50] VITALS: BP 107/70; PULSE 72; RESP 16; TEMP 36.8; O2SAT 97
[2018-05-16 09:45] VITALS: O2SAT 94
[2018-05-16 09:50] VITALS: PULSE 102; PULSE 93; PULSE 95; RESP 20; RESP 24; O2SAT 90; O2SAT 92; O2SAT 93
--- NOTE | 2018-05-16 10:06 | PDOC.CMDIS ---
- If Service Date Differs Date of service: 05/16/18 Time of Service: 10:06 LACE Index Scoring Tool - Questions: Length of Stay (in days): 3 Acuity (Admit via E.D.?): Yes E.D. Visits: 1 - Answers: Total Score: 7 Risk of Readmission: Low Risk Care Management Discharge Reason for Hospitalization: Bilateral Pulmonary PE's Discharge Plan: Javier is being discharged home today he will have new prescription for Eliquis which CM verified with [employer] that prescription was received and the copay will be 30.00 a month. Patient agrees to the plan he will follow up with [facility] med. Javier has no other needs at time of discharge. He will be transported home via private car with his spouse. Patient/Family Education Needs: Discharge education, limitations and follow up plan of care.
--- NOTE | 2018-05-16 10:33 | CMDISCH_ITS ---
- If Service Date Differs Date of service: 05/16/18 Time of Service: 10:06 LACE Index Scoring Tool - Questions: Length of Stay (in days): 3 Acuity (Admit via E.D.?): Yes E.D. Visits: 1 - Answers: Total Score: 7 Risk of Readmission: Low Risk Care Management Discharge Reason for Hospitalization: Bilateral Pulmonary PE's Discharge Plan: Javier is being discharged home today he will have new prescription for Eliquis which CM verified with [employer] that prescription was received and the copay will be 30.00 a month. Patient agrees to the plan he will follow up with [facility] med. Javier has no other needs at time of discharge. He will be transported home via private car with his spouse. Patient/Family Education Needs: Discharge education, limitations and follow up plan of care.
[2018-05-16] MEDS: Apixaban 5 MG TAB 10 MG PO (11:38)
--- NOTE | 2018-05-16 11:49 | DSE_ITS ---
Date of service: 05/16/18 Time of Service: 11:48 DS: Diagnosis Discharge Diagnosis (1) Pulmonary embolism and infarction: Status: Acute (2) Pleuritic chest pain: Status: Acute (3) Pulmonary hypertension: Status: Acute (4) Other and unspecified hyperlipidemia: Status: Chronic (5) Essential hypertension: Status: Chronic (6) Adult BMI > 30: Status: Chronic Discharge Plan Disposition Patient Disposition: HOME Condition: Stable Discharge Details Reason For Visit: BILATERAL PULMONARY EMBOLI Admit Date/Time: 05/14/18 18:13 Admit Provider: Rohith Nj Attending Provider: Rohith Nj Primary Care Provider: Silvana Huertas Hospital Course Hospital Course: Mr Schrader is a 58 year old male with PMHx of hypertension, hyperlipidemia, obesity who presented to [facility] ED and was admitted to [facility] on 05/15/18 with pleuritic chest pain due to acute bilateral pulmonary emboli. These were likely provoked as the patient describes both a recent left ankle injury as well as a lengthy car trip to [place]. The patient was suspected to have right ventricular strain by CT - however, his echocardiogram did not confirm this finding. It does appear that the patient has a component of acute pulmonary hypertension, most likely due to the acute PE's, on the echocardiogram. He does not require oxygen as verified by exercise oxymetry. He had not had any arrhythmic events on telemetry. He does not appear to have any DVT's in his LE' s at this time (it is suspected that he did, in fact, had a LLE DVT which had embolized). He was treated with therapeutic lovenox for 24 hours and transitioned to eliquis - case management verified that it is covered by his insurance. The patient's pleuritic chest pain remains a concern, and he does have pulmonary infarcts on CT, but there is no evidence of pneumonia, so he is not being discharged on antibiotics. He is, however, being discharged with an incentive spirometer. He was advised not to use NSAIDs for pain control, was offered lidocaine patches, but prefers to use tylenol. He is hemodynamically stable and is deemed stable for discharge home. He will have to follow up with his PCP, hematology, as well as pulmonology as outpatient. Home Meds and New Rx's Prescriptions: New apixaban [Eliquis] 5 mg tablet See Label Instructions .ROUTE .COMPLEX Qty: 74 RF: 0 Discontinued aspirin [Aspir-81] 81 MG tablet,delayed release (DR/EC) 81 mg PO DAILY RF: 0 Discharge Instructions Instructions: Apixaban (By mouth), Pulmonary Embolism (DC), Pleurisy (DC), How to Use an Incentive Spirometer (DC), Pulmonary Arterial Hypertension (DC) Additional Instructions: Return to the hospital with any fever, bleeding, chest pain, or shortness of breath. Referrals: Silvana Huertas NP [Primary Care Provider] - Zoë Sanches MD [ NON-[facility] STAFF PHYSICIAN] - Activity:: Activity as Tolerated Equipment/Supplies:: No Equipment Needed Diet:: Normal Diet Discharge Orders Discharge Orders: Discharge Order (Routine); Ordered 05/16/18 Ordered By: Jesusita Frank Exam Narrative Exam Narrative: General: Pleasant middle-aged male, walking in the hallway without oxygen Neurological: A&Ox3, no focal deficits Psychiatric: No bruises or rashes Skin: intact HEENT: EOMI, MMM, no goiter or JVD Cardiovascular: RRR, no m/r/g Lungs: CTAB - diminished at bases Gastrointestinal: abdomen soft, nontender, nondistended Extremities: trace edema in BLE's, no clubbing/cyanosis DS: Data Vitals/I&O Vitals and I&O: Vital Signs Temperature 37.1 C 05/15/18 11:48 Temperature Source Tympanic 05/15/18 11:48 Pulse 77 05/15/18 11:48 Pulse Rhythm Regular 05/15/18 09:30 Respiratory Rate 17 05/15/18 11:48 Respiratory Effort Short of Breath 05/15/18 09:30 Respiratory Depth Normal 05/15/18 09:30 Respiratory Pattern Normal 05/15/18 09:30 Blood Pressure 114/73 05/15/18 11:48 Blood Pressure Position Sitting 05/14/18 09:53 Pulse Oximetry 96 05/15/18 11:48 Oxygen Delivery Method Room Air 05/15/18 11:48 Oxygen Flow Rate 0 05/15/18 11:48 Pain Level 3 05/15/18 12:11 Intake & Output 05/14/18 05/15/18 05/15/18 23:59 11:59 23:59 Intake Total 240 / 240 120 / 120 450 / 450 Balance 240 / 240 120 / 120 450 / 450 Weight 104.326 kg 104.9 kg Intake: Oral 240 / 240 120 / 120 450 / 450 Other: Urine Appearance Clear Comment shift foreman nurse reprted patient had been urinating throughout the night. Voiding Methods Toilet Completed studies during hospitalization [Text1]: CXR 05/14/18: : Small right pleural effusion. Question left lower lobe pneumonitis. Follow up images to clearing are recommended. Please see the above discussion. CTA chest 05/14/18: Bilateral upper and lower lobe pulmonary emboli are demonstrated as described above. There is a small right pleural effusion and a region of increased density in the lateral portion of the right lower lobe which could well represent an infarct. An acute pneumonitis could not be excluded. Note is also made of right ventricular strain. Please see the above discussion. Echo 05/14/18: 1. Left ventricle: The cavity size was normal. Wall thickness was at the upper limits of normal. Systolic function was normal. The estimated ejection fraction was 60-65%. Wall motion was normal; there were no regional wall motion abnormalities. 2. Right ventricle: The cavity size was at the upper limits of normal. Systolic function was normal. Possible apical RV hypokinesia. 3. Pulmonary arteries: Pulmonary systolic pressure was increased, in the range of 50mm Hg to 55mm Hg. 4. Inferior vena cava: The vessel was patent and normal in size. The respirophasic diameter changes were in the normal range (greater than or equal to 50%), consistent with normal central venous pressure. US venous BLE's 05/15/18: There is no evidence of DVT. Labs on day of discharge: Labs from last 24 hours 05/15/18 05/15/18 05/15/18 07:00 07:00 07:00 WBC 14.12 H RBC 4.40 L Hgb 12.8 L Hct 39.2 L MCV 89.1 MCH 29.1 MCHC 32.7 RDW 13.2 Plt Count 290 MPV 9.2 Immature Gran % 0.3 Neutrophils % 72.7 Lymphocytes % 14.5 Monocytes % 11.9 Eosinophils % 0.4 Basophils % 0.2 Absolute Neutrophils 10.27 H Absolute Lymphocytes 2.05 Absolute Monocytes 1.68 H Absolute Eosinophils 0.06 Absolute Basophils 0.03 Sodium 136 Potassium 4.0 Chloride 99 Carbon Dioxide 23.8 Anion Gap 13.2 H BUN 12 Creatinine 0.94 Estimated GFR/1.73 m2 >= 60.00 Glucose 108 H Lactate Calcium 9.4 Magnesium 1.9 Troponin I < 0.02 05/14/18 15:23 WBC RBC Hgb Hct MCV MCH MCHC RDW Plt Count MPV Immature Gran % Neutrophils % Lymphocytes % Monocytes % Eosinophils % Basophils % Absolute Neutrophils Absolute Lymphocytes Absolute Monocytes Absolute Eosinophils Absolute Basophils Sodium Potassium Chloride Carbon Dioxide Anion Gap BUN Creatinine Estimated GFR/1.73 m2 Glucose Lactate 1.1 Calcium Magnesium Troponin I 05/14/18 15:23 Blood Blood Culture - Pending 05/14/18 14:10 Blood Blood Culture - Pending Preliminary micro results at discharge 05/14/18 15:23 Blood Culture - Pending Blood 05/14/18 14:10 Blood Culture - Pending Blood
== END 2018-05-16 14:35 | disposition home or self-care (01) ==
LOC: ER 18:37 → MS 05-15 08:27
PROVIDERS: Admitting Provider Internal Medicine; Emergency Provider Physician Assistant; PCP Nurse Practitioner Family; Visit Provider Internal Medicine
DX: I26.99 Other pulmonary embolism without acute cor pulmonale (principal); R07.81 Pleurodynia; I27.20 Pulmonary hypertension, unspecified; E78.5 Hyperlipidemia, unspecified; I10 Essential (primary) hypertension
CPT/HCPCS: 36415; 71275; 80048; 80053; 87040; 93005; 94640; 96372; 99220; 99232; 99239; 99285; 71046; 83605; 83735; 83880; 84484; 85025; 85379; 85610; 85730; 93010; 93306; 93970; 99225; G0378; J1650; J3490; J7613; J7620

== ENCOUNTER 2018-09-12 01:03 | Outpatient (CLI) | payer OTHER, SELFPAY ==
[2018-09-12 07:33] LABS: Abs Immature Grans 0.02 k/cumm (0.0-0.09); Absolute Basophil Count 0.02 k/cumm (0.0-0.2); Absolute Eosinophil Count 0.15 k/cumm (0.0-0.7); Absolute Lymphocyte Count 1.79 k/cumm (1.2-3.4); Absolute Monocyte Count 0.69 k/cumm (0.11-0.7); Absolute Neutrophil Count 5.58 k/cumm (1.2-6.7); Basophils % 0.2; Eosinophils % 1.8; HCT 44.2 % (40.0-50.0); HGB 14.7 g/dL (13.5-17.5); Immature Grans % 0.2; Lymphocytes % 21.7; Mean Corp. HGB Concentration 33.3 g/dL (32.0-36.0); Mean Corpuscular Hemoglobin 29.1 pg (27.0-33.0); Mean Corpuscular Volume 87.4 fL (80-95); Mean Platelet Volume 9.2 fL (8.0-11.0); Monocytes % 8.4; Neutrophils % 67.7; Platelet Count 298 x1000/uL (130-400); RBC 5.06 m/cumm (4.50-6.00); RBC Distribution Width 13.9 % (11.8-14.1); White Blood Cell Count 8.25 k/cumm (4.4-10.8)
[2018-09-12 08:34] LABS: Cholesterol 242 mg/dL (50-200); HDL Cholesterol 50 mg/dL (40-60); LDL CHOLESTEROL 157 mg/dL (<100); Triglyceride 192 mg/dL (30-150)
== END 2018-09-12 01:23 ==
PROVIDERS: PCP Nurse Practitioner Family; Visit Provider Nurse Practitioner Family
DX: D64.9 Anemia, unspecified (principal); E78.5 Hyperlipidemia, unspecified
CPT/HCPCS: 36415; 80061; 83721; 85025

== ENCOUNTER 2020-02-26 02:38 | Outpatient (CLI) | payer OTHER, SELFPAY ==
[2020-02-26 08:16] LABS: Abs Immature Grans 0.03 10^3/uL (0.0-0.06); Absolute Basophil Count 0.05 10^3/uL (0.0-0.2); Absolute Eosinophil Count 0.12 10^3/uL (0.0-0.7); Absolute Lymphocyte Count 2.55 10^3/uL (1.2-3.4); Absolute Monocyte Count 0.78 10^3/uL (0.1-0.8); Basophils % 0.5; Eosinophils % 1.3; HCT 42.2 % (40.0-50.0); HGB 14.3 g/dL (13.5-17.5); Immature Grans % 0.3; Lymphocytes % 27.9; MCH 29.7 pg (27.0-33.0); MCHC 33.9 % (32.0-36.0); MCV 87.6 fL (80-95); MPV 9.1 fL (8.0-11.0); Monocytes % 8.5; Neutrophils % 61.5; Nucleated RBC 0 %; Platelet Count 305 10^3/uL (130-400); RBC 4.82 10^6/uL (4.36-5.78); RDW 12.5 % (11.8-14.1); RDW-SD 40.4 fL; WBC 9.13 10^3/uL (4.4-10.8)
[2020-02-26 09:21] LABS: ALT 36 U/L (16-63); AST 33 U/L (15-37); Alkaline Phosphatase 55 U/L (46-116); BUN 12 mg/dL (7-18); Bilirubin, Total 0.6 mg/dL (0.2-1.0); CREATININE 0.93 mg/dL (0.70-1.30); Calcium 9.5 mg/dL (8.5-10.1); Chloride 102 mmol/L (98-107); Glucose 99 mg/dL (74-106); Potassium 4.4 mmol/L (3.5-5.1); Sodium 138 mmol/L (136-145)
[2020-02-29 13:15] LABS: Calculated LDL 168 mg/dL (<100); Cholesterol 240 mg/dL (<200); HDL Cholesterol 49 mg/dL (40-60); Triglyceride 116 mg/dL (<150)
== END 2020-02-26 02:58 ==
PROVIDERS: PCP Nurse Practitioner Family; Visit Provider Nurse Practitioner Family
DX: I10 Essential (primary) hypertension (principal); E78.5 Hyperlipidemia, unspecified; Z51.81 Encounter for therapeutic drug level monitoring
CPT/HCPCS: 36415; 80053; 80061; 85025

== ENCOUNTER 2020-12-15 02:48 | Outpatient (CLI) | payer OTHER, SELFPAY ==
[2020-12-15 07:45] LABS: Abs Immature Grans 0.04 10^3/uL (0.0-0.06); Absolute Basophil Count 0.05 10^3/uL (0.0-0.2); Absolute Eosinophil Count 0.07 10^3/uL (0.0-0.7); Absolute Lymphocyte Count 1.92 10^3/uL (1.2-3.4); Absolute Monocyte Count 0.79 10^3/uL (0.1-0.8); Absolute Neutrophil Count 5.85 10^3/uL (1.2-6.7); Basophils % 0.6; Eosinophils % 0.8; HCT 44.5 % (40.0-50.0); HGB 14.5 g/dL (13.5-17.5); Immature Grans % 0.5; MCH 29.2 pg (27.0-33.0); MCHC 32.6 % (32.0-36.0); MCV 89.5 fL (80-95); MPV 8.8 fL (8.0-11.0); Monocytes % 9.1; Nucleated RBC 0 %; Platelet Count 298 10^3/uL (130-400); RBC 4.97 10^6/uL (4.36-5.78); RDW 12.6 % (11.8-14.1); RDW-SD 41.6 fL; WBC 8.72 10^3/uL (4.4-10.8)
[2020-12-15 09:05] LABS: Anion Gap 9.5 mmol/L (3-11); BUN 17 mg/dL (7-18); CO2 26.5 mmol/L (21.0-32.0); CREATININE 1.1 mg/dL (0.70-1.30); Calcium 9.2 mg/dL (8.5-10.1); Calculated LDL 180 mg/dL (<100); Chloride 104 mmol/L (98-107); Cholesterol 259 mg/dL (<200); Glucose 102 mg/dL (74-106); HDL Cholesterol 43 mg/dL (40-60); Potassium 4.4 mmol/L (3.5-5.1); Sodium 140 mmol/L (136-145); Triglyceride 181 mg/dL (<150)
== END 2020-12-15 02:49 | disposition home or self-care (01) ==
LOC: LBO 02:48
PROVIDERS: PCP Nurse Practitioner Family; Visit Provider Nurse Practitioner Family
DX: I10 Essential (primary) hypertension (principal); Z13.1 Encounter for screening for diabetes mellitus; I26.99 Other pulmonary embolism without acute cor pulmonale; E78.5 Hyperlipidemia, unspecified; Z79.01 Long term (current) use of anticoagulants
CPT/HCPCS: 36415; 80048; 80061; 85025

== ENCOUNTER 2021-12-19 15:05 | Outpatient (REF) | payer OTHER, SELFPAY ==
[2021-12-19 18:32] LABS: HCT 41.7 % (40.0-50.0); HGB 13.9 g/dL (13.5-17.5); MCH 29.1 pg (27.0-33.0); MCHC 33.3 % (32.0-36.0); MCV 87 fL (80-95); MPV 9.6 fL (8.0-11.0); Platelet Count 311 10^3/uL (130-400); RBC 4.78 10^6/uL (4.36-5.78); RDW 12.7 % (11.8-14.1); RDW-SD 40.3 fL; WBC 11.01 10^3/uL (4.4-10.8)
[2021-12-19 19:14] LABS: ALT 31 U/L (16-63); AST 18 U/L (15-37); Alkaline Phosphatase 74 U/L (46-116); Anion Gap 10.1 mmol/L (3-11); BUN 17 mg/dL (7-18); Bilirubin, Total 0.4 mg/dL (0.2-1.0); CO2 24.9 mmol/L (21.0-32.0); Calcium 9.2 mg/dL (8.5-10.1); Calculated LDL 110 mg/dL (<100); Chloride 102 mmol/L (98-107); Cholesterol 196 mg/dL (<200); Glucose 100 mg/dL (74-106); HDL Cholesterol 47 mg/dL (40-60); Potassium 4.1 mmol/L (3.5-5.1); Sodium 137 mmol/L (136-145); Total Protein 7.9 g/dL (6.4-8.2); Triglyceride 198 mg/dL (<150)
== END 2021-12-19 15:06 | disposition home or self-care (01) ==
LOC: LBN 15:05
PROVIDERS: PCP Nurse Practitioner Family; Visit Provider Nurse Practitioner
DX: E78.5 Hyperlipidemia, unspecified (principal); I10 Essential (primary) hypertension; I26.99 Other pulmonary embolism without acute cor pulmonale
CPT/HCPCS: 80053; 80061; 85027

== ENCOUNTER 2023-07-17 02:56 | Outpatient (CLI) | payer OTHER, SELFPAY ==
[2023-07-17 07:24] LABS: Abs Immature Grans 0.04 10^3/uL (0.0-0.06); Absolute Basophil Count 0.02 10^3/uL (0.0-0.2); Absolute Eosinophil Count 0.17 10^3/uL (0.0-0.7); Absolute Lymphocyte Count 1.98 10^3/uL (1.2-3.4); Absolute Monocyte Count 0.74 10^3/uL (0.1-0.8); Absolute Neutrophil Count 5.27 10^3/uL (1.2-6.7); Basophils % 0.2; Eosinophils % 2.1; HCT 43.5 % (40.0-50.0); HGB 14.4 g/dL (13.5-17.5); Immature Grans % 0.5; Lymphocytes % 24.1; MCH 29.5 pg (27.0-33.0); MCHC 33.1 % (32.0-36.0); MCV 89 fL (80-95); MPV 8.8 fL (8.0-11.0); Neutrophils % 64.1; Platelet Count 319 10^3/uL (130-400); RBC 4.88 10^6/uL (4.36-5.78); RDW 13.1 % (11.8-14.1); RDW-SD 42.6 fL; WBC 8.22 10^3/uL (4.4-10.8)
[2023-07-17 09:14] LABS: ALT 32 U/L (16-63); AST 28 U/L (15-37); Albumin 3.9 g/dL (3.4-5.0); Alkaline Phosphatase 59 U/L (46-116); Anion Gap 6.7 mmol/L (3-11); BUN 10 mg/dL (7-18); Bilirubin, Total 0.4 mg/dL (0.2-1.0); CO2 29.3 mmol/L (21.0-32.0); CREATININE 0.9 mg/dL (0.70-1.30); Calcium 9.3 mg/dL (8.5-10.1); Calculated LDL 78 mg/dL (<100); Chloride 103 mmol/L (98-107); Cholesterol 169 mg/dL (<200); Estimated GFR 96.57 (mL/min/1.73m2); Glucose 107 mg/dL (74-106); HDL Cholesterol 53 mg/dL (40-60); Potassium 4.1 mmol/L (3.5-5.1); Sodium 139 mmol/L (136-145); Total Protein 8.4 g/dL (6.4-8.2); Triglyceride 194 mg/dL (<150)
== END 2023-07-17 02:57 | disposition home or self-care (01) ==
LOC: LBO 02:56
PROVIDERS: Absent Provider Nurse Practitioner; PCP Nurse Practitioner; Referring Provider Nurse Practitioner; Visit Provider Nurse Practitioner
DX: E78.5 Hyperlipidemia, unspecified (principal); I10 Essential (primary) hypertension; I26.99 Other pulmonary embolism without acute cor pulmonale
CPT/HCPCS: 36415; 80053; 80061; 85025

== ENCOUNTER 2024-08-12 01:11 | Outpatient (CLI) | payer BC, SELFPAY ==
--- OUTSIDE RECORDS SUMMARY | 2024-08-12 01:50 | XMS_ITS | Encounter Summary ---
Author Organization [facility] [place] [address] Care Team Providers Care Banquet Line Cook Name Role Phone Silvana Huertas APRN Primary Care Provider [phone] Encounter Details Date Type Department Care Team (Latest Contact Info) Description 08/01/2018 8:59 AM EST - 08/01/2018 10:44 AM EST Hospital [place] [address] Pulmonary HTN Discharge Disposition: Home Social History Tobacco Use Types Packs/Day Years Used Date Smoking Tobacco: Former Cigarettes Q uit: 1997 Smokeless Tobacco: Never Sex and Gender Information Value Date Recorded Sex Assigned at Not on file Gender Identity Not on file Sexual Orientation Not on file documented as of this encounter Medications at Time of Discharge Medication Sig Dispensed Refills Start Date End Date apixaban (ELIQUIS) 5 mg Tablet Take 5 mg by mouth 2 times daily. documented as of this encounter Procedure Notes * Nitesh Anna MD - 08/01/2018 2:25 PM ESTAssociated Order(s): PULMONARY FUNCTION TEST Pulmonary Function Test Interpretation Spirometry The FVC is normal. FEV1 is normal. The FEV1/FVC ratio is normal. There is flattening of the inspiratory limb of the flow-volume loop Diffusion Capacity Unadjusted single-breath diffusion capacity for CO is normal. Oximetry Resting oxyhemoglobin saturation is normal. Resting oximetry was assessed while the patient was breathing room air. Oxyhemoglobin saturation during ambulation was normal. Ambulatory oximetry was assessed while the patient was breathing room air. The lowest saturation was 94%. Impression: Normal spirometry by numbers, but flattening of the inspiratory limb of the flow-volume loop is seen with variable extrathoracic airway obstruction, but can also reflect difficulty with test maneuver. Suggest clinical correlation if patient is symptomatic with stridor/inspiratory wheezing or dyspnea No diffusion impairment present Normal resting oximetry Nitesh Anna MD, PhD documented in this encounter Plan of Treatment Not on file documented as of this encounter Procedures Procedure Name Priority Date/Time Associated Diagnosis Comments COMMON PULMONARY FUNCTION TEST Routine 08/01/2018 2:25 PM EST Pulmonary HTN documented in this encounter Results * Pulmonary Function Testing (08/01/2018 2:25 PM EST) Narrative Nitesh Anna MD - 08/01/2018 2:25 PM EST Nitesh Anna MD ? 08/01/2018 ??2:26 PM Pulmonary Function Test Interpretation Spirometry The FVC is normal. ??FEV1 is normal. ??The FEV1/FVC ratio is normal. There is flattening of the inspiratory limb of the flow-volume loop Diffusion Capacity Unadjusted single-breath diffusion capacity for CO is normal. Oximetry Resting oxyhemoglobin saturation is normal. Resting oximetry was assessed while the patient was breathing room air. Oxyhemoglobin saturation during ambulation was normal. Ambulatory oximetry was assessed while the patient was breathing room air. ??The lowest saturation was 94%. Impression: Normal spirometry by numbers, but flattening of the inspiratory limb of the flow-volume loop is seen with variable extrathoracic airway obstruction, but can also reflect difficulty with test maneuver. Suggest clinical correlation if patient is symptomatic with stridor/inspiratory wheezing or dyspnea No diffusion impairment present Normal resting oximetry Nitesh Anna MD, PhD Mic Diaz MD PFT ORDERABLES documented in this encounter Visit Diagnoses Diagnosis Pulmonary HTN Other chronic pulmonary heart diseases documented in this encounter Care Teams Banquet Line Cook Relationship Specialty Start Date End Date Silvana Huertas, RADHA PCP - General Family Medicine 05/26/18 documented as of this encounter
--- OUTSIDE RECORDS SUMMARY | 2024-08-12 01:50 | XMS_ITS | Encounter Summary ---
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 Pulmonary embolism and infarction/eval and treat Procedures Pulmonary embolism and infarction/eval and treat Jesusita Frank MD [address] [place] [address] Alana Hope MD [facility] HEMATOLOGY AND [place] [address] Referral ID Status Reason Start Date Expiration Date V isits Requested Visits Authorized [id number] Closed Consult, Test & Treat PCP Updated and/or Approved 08/29/2018 08/29/2019 1 1 Encounter Details Date Type Department Care Team (Latest Contact Info) Description 08/29/2018 11:30 AM EST Office Visit [place] [address] Alana Hope MD [facility] [address] HEMATOLOGY AND [place] [address] Other acute pulmonary embolism without acute cor pulmonale; Anticoagulated by anticoagulation treatment Social History Tobacco Use Types Packs/Day Years Used Date Smoking Tobacco: Former Cigarettes Q uit: 1997 Smokeless Tobacco: Never Sex and Gender Information Value Date Recorded Sex Assigned at Not on file Gender Identity Not on file Sexual Orientation Not on file documented as of this encounter Last Filed Vital Signs Vital Sign Reading Time Taken Comments Blood Pressure 138/92 08/29/2018 11:18 AM EST Pulse 84 08/29/2018 11:18 AM EST Temperature 36.5 ??C (97.7 ??F) 08/29/2018 1 1:18 AM EST Respiratory Rate 18 08/29/2018 11:1 8 AM EST Oxygen Saturation 98% 08/29/2018 11: 18 AM EST Inhaled Oxygen Concentration - - Weight 109.6 kg (241 lb 9.6 oz) 019 11:18 AM EST Height 175.5 cm (5' 9.09) 08/29/2018 1 1:18 AM EST Body Mass Index 35.58 08/29/2018 11:18 AM EST documented in this encounter Progress Notes * Rayna Arreola MD - 08/29/2018 11:30 AM EST Images from the original note were not included. [facility] [place] [address] THROMBOSIS FOLLOW UP DATE OF VISIT 08/29/2018 Patient Javier Schrader 1960 REFERRING PHYSICIAN Jesusita Frank MD PRIMARY CARE PHYSICIAN Silvana Huertas APRN REASON FOR CONSULTATION Management of recently diagnosed PE with pulmonary infarction HISTORY OF THE PRESENT ILLNESS Javier Schrader is a 58 y.o. man with PMH of HTN, HLD and bilateral PE, who is seen in consultationat the request of Jesusita Frank MD for management of bilateral unprovoked PE. He had presented to [facility] with pleuritic chest pain and SOB in May 2018 and was diagnosed with bilateral segmental/subsegemental PE in the upper and lower lobes. He noted that he had sprained his ankle about 12 days before presentation. He had gone to [place] after that (in a truck) which was a 18- hour drive (one way). He was stopping every 4-5 [address] and walking around. He started having SOB the day after he returned from [place] and continued to be active (walking on treadmill and with his dogs). He was not feeling well and tried to see his PCP but not able to getan urgent appointment. So he decided to go to [facility] ED and was diagnosed with b/l PE. He was initially started on therapeutic lovenox and was transitioned to Eliquis. He noted that the chest pain resolves after 4-5 days on Eliquis. INTERVAL HISTORY Patient is presenting to the clinic for follow-up today to review the results of his thrombosis screening. He continues to take Eliquis 5 mg twice a day and has been tolerating it well with no signs of increased bleeding or bruising. He denies having any upcoming surgeries, however does note that he will likely be getting some dental procedures in the near future. PAST MEDICAL HISTORY - hypertension (intermittently, started when he had back surgery) - hyperlipidemia (discontinued the statins about 8 years ago) - bilateral PE OPERATIVE PROCEDURES - L knee meniscus repair in 2007 MEDICATIONS Current Outpatient Medications on File Prior to Visit Medication Sig Dispense Refill ??? apixaban (ELIQUIS) 5 mg Tablet Take 5 mg by mouth 2 times daily. No current facility-administered medications on file prior to visit. ADVERSE DRUG REACTIONS Allergies as of 08/29/2018 ??? 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) REVIEW OF SYSTEMS Fevers/chills/sweats No Recent infections No Unexplained weight loss No Headache/lightheadedness/syncope No Sinus pain/pressure No Oral sores/lesions/bleeding No Sore throat/dysphagia No Nosebleeds No Cough/SOB/chest pain/heart racing No Nausea/vomiting/dyspepsia No Abdominal pain No Diarrhea/constipation No Urinary pain, burning, incontinence No Hematuria No Vaginal discharge/bleeding No Skin rashes/ulcers No Back/joint pain/swelling No Leg swelling/pain/redness No Bruising/petechiae/bleeding/melena No Sensory/motor No Polydipsia/polyuria/heat/cold intol No Lumps/bumps/swollen glands No Other Negative except as above PHYSICAL EXAMINATION BP (!) 138/92 (Patient Position: Sitting) Pulse 84 Temp 36.5 ??C (97.7 ??F) (Temporal) Resp 18 Ht 175.5 cm (5' 9.09) Wt 109.6 kg (241 lb 9.6 oz) SpO2 98% BMI 35.58 kg/m?? GENERAL: Well-appearing, articulate white male NEUROLOGIC: Alert, oriented. Speech clear, coherent. No focal deficits noted. PSYCHIATRIC: Appropriate affect, no apparent distress. LABORATORY STUDIES Thrombosis screening 08/01/18 TEST ?? RESULT ?REFERENCE RANGE Platelet count ?? 309 ? (145-357k/mcL) PT ?? 12.2 ? ( 9.4 - 12.5 sec) PTT ?? 31 ? ( 25 - 37 seconds) Fibrinogen ?? 354 ? (200 ??- 393 mg/dL) TT ?? 13 ? (10 ??- 17 seconds) APC Resistance (normalized ratio) ? 2.78 ? (> 2.17) Anti-thrombin ?? 100 ? (83 ??- 128%) Protein C* ?? 117 ? (70 ??- 140%) Protein S* ?145 ? (64 ??- 149%) Lupus anticoagulant (DRVVT ratio) ?? NOT DONE ? (<1.20) Lupus anticoagulant (SCT ratio) ? NOT DONE ? (<1.16) Anticardiolipin antibodies(IGG) ?13.1 ?<=14.9 GPL unit(s) Anticardiolipin antibodies(IGM) ? <9.4 ?<=12.5 MPL units Beta-2 glycoprotein-1 antibody IgG ?<9.4 ?<=20.0 unit(s) Beta-2 glycoprotein-1 antibodyIgM ? <9.4 ? <=20.0 unit(s) Homocysteine, random, plasma ?14 ? ( < 15 mcmol/L) if APCR< 2.0 FV Leiden mutation ? NOT DONE ?(negative) Prothrombin (73832 G ? A) mutation ?neg ? (negative) RADIOGRAPHIC STUDIES Reviewed reports and images of the CTA and ultrasound of the lower extremity performed at the outside hospital IMPRESSION Javier Schrader is a 58 y.o. man with PMH of HTN, HLD and recently diagnosed bilateral PE, who is presenting to the thrombosis clinic to discuss the results of his thrombophilia screening. We reviewed that the thrombophilia screening was negative. However, given his history of bilateral unprovoked PEs and male gender, he is at higher risk for recurrent episode. Being on long-term anticoagulation, will help to minimize the risk and hopefully prevent another episode. PLAN/RECOMMENDATIONS We recommend continuing full dose anticoagulation with Eliquis 5 mg twice daily for another 3 months to complete a total of 6 months. After which, he can decrease the dose to the prophylactic dose of2.5 mg twice daily and continue it indefinitely unless there are any contraindications. This dose modification can be performed by his primary care provider Silvana Huertas APRN when he is at the six-month chantal. We reviewed that he will need interruption of his anticoagulation prior to surgeries or invasive procedures. For his upcoming dental procedure with novocaine, we recommend holding the medication 2 days prior to the procedure and restarting it after the procedure. If there are any specific questionsor recommendations needed in the future, we advised him to call our office and we will be happy to help. We will not plan to see the patient back routinely, however would be happy to see him back in the future if the need arises or if there are any questions about recommendations on perioperative management of anticoagulation. Patient's case was discussed with my attending Dr. Hope. Rayna Arreola MD Hematology/Oncology fellow Pager [phone] +*+*+*+*+*+*+*+*+*+*+*+*+*+*+*+*+*+*+*+*+*+*+*+*+*+*+*+*+*+*+*+*+*+*+*+*+*+* Thrombosis Attending Physician I have independently interviewed and examined this patient in the outpatient clinic and have personally reviewed the relevant clinical, laboratory and radiological data with Dr. Rayna Arreola, Hematology/Oncology Fellow. Please refer to the separate consultation note, with which I concur, for complete details of our encounter with this patient. I have reviewed and endorse the recommendations as outlined and have made any additions/corrections below. In brief, Edgardo returns to review the results of thrombophilia screening and the studies are reassuringly negative. 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 We reviewed the difference between an idiopathic VTE event and one that may have been precipitated by temporary risk factors (e.g., surgery, trauma, travel, hospitalization, immobilization)and discussed the additive nature of factors such as hereditary or acquired thrombophilia (e.g., factor V Leiden, PT [id number]), ABO blood type (non-O > O), dehydration, obesity, smoking varicose vei ns, diabetes, cancer, hormone use. We explained that the risk for developing a recurrent VTE is higher when the original event was unprovoked than when it was associated with identifiable risk factors that have subsequently been eliminated. I explained that current ACCP recommendations (2016) for individuals with a first unprovoked VTE are for 3 months of anticoagulation with consideration for continuing indefinitely if the benefit in terms of risk reduction outweighs the risk for complicationsof long-term anticoagulation. Indefinite anticoagulation would be more strongly recommended in the event of a second VTE episode, especially an unprovoked one. In his case, we have to say that his VTE event was essentially unprovoked, thus the risk for recurrence is up to 20-30% over the two years following discontinuation of anticoagulation.In light of this, we think his recurrence risk is high enough and the consequences of recurrence potentially severeenough that consideration for ongoing anticoagulation is in his best interest at this time. Anticoagulation reduces the risk for VTE recurrence to about 1% per year at the hazard of a major bleeding risk that is also about 1% per year. We conceded that life-threatening bleeding is risk with anticoagulation but that the risk for this is currently outweighed by his risk for serious thrombosis without anticoagulation. Given that he has tolerated apixaban it is reasonable to continue. Once he has completed 6 months of anticoagulation, it will be appropriate to lower the dose to 2.5 mg twice daily which is the FDA-approved dose for shelter VTE prevention. Our recommendation is therefore to continue with apixabanfor the shelter, substituting the 2.5 mg dose for the 5 mg dose after he has completed a total of6 months of anticoagulation and we defer to his PCP to do this. He is perfectly amenable to that approach, especially since he feels so much better on anticoagulation. The risk/benefit calculation for continuing with anticoagulation may electronic data interchange specialist time, however, and should be revisited periodically. The alternative is low dose daily aspirin (81 mg) but while aspirin is effective for arterial thromboprophylaxis, its value for venous thromboprophylaxis is limited and inferior to anticoagulation. We reviewed the idea that should he require surgery or other invasive procedures, temporary interruption of apixaban is recommended. He simply needs to hold the medication for 2 days prior to the procedure and restart after the procedure. We told him that we would be happy to help out with specific recommendations in the future if the issue comes up. Although the risk for a recurrent event on anticoagulation is low, it is not zero, and we reviewed signs and symptoms of DVT and PE and reminded him to seek medical attention expeditiously should they occur. In summary: ?? 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 ?? 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 Frank/RADHA Huertas to manage the prescription ?? Seek medical attention for new VTE symptoms ?? Hold apixaban for 2 days prior to invasive procedures ?? No further thrombophilia testing at this time. ?? No concurrent aspirin. Judicious NSAID use Edgardo had the opportunity to ask questions and indicated that all his questions were answered to his satisfaction. While we won't plan to see him back routinely, we'll be happy to see him back at anytime in the future as appropriate and would especially welcome the opportunity to provide recommenda tions for anticoagulant management around invasive procedures should the need arise. Alana Hope MD Technical Service Specialist, [facility] * Alana Hope MD - 08/29/2018 11:30 AM EST Images from the original note were not included. [facility] [address] +*+*+*+*+*+*+*+*+*+*+*+*+*+*+*+*+*+*+*+*+*+*+*+*+*+*+*+*+*+*+*+*+*+*+*+*+*+* Thrombosis Attending Physician I have independently interviewed and examined this patient in the outpatient clinic and have personally reviewed the relevant clinical, laboratory and radiological data with Dr. Rayna Arreola, Hematology/Oncology Fellow. Please refer to the separate consultation note, with which I concur, for complete details of our encounter with this patient. I have reviewed and endorse the recommendations as outlined and have made any additions/corrections below. In brief, Edgardo returns to review the results of thrombophilia screening and the studies are reassuringly negative. Nevertheless, in light of the unprovoked nature of the VTE event and the potential life-threatening consequences of a recurrence, we recommend continuing with anticoagulation for the shelter. We reviewed the difference between an idiopathic VTE event and one that may have been precipitated by temporary risk factors (e.g., surgery, trauma, travel, hospitalization, immobilization)and discussed the additive nature of factors such as hereditary or acquired thrombophilia (e.g., factor V Leiden, PT [id number]), ABO blood type (non-O > O), dehydration, obesity, smoking varicose vei ns, diabetes, cancer, hormone use. We explained that the risk for developing a recurrent VTE is higher when the original event was unprovoked than when it was associated with identifiable risk factors that have subsequently been eliminated. I explained that current ACCP recommendations (2016) for individuals with a first unprovoked VTE are for 3 months of anticoagulation with consideration for continuing indefinitely if the benefit in terms of risk reduction outweighs the risk for complicationsof long-term anticoagulation. Indefinite anticoagulation would be more strongly recommended in the event of a second VTE episode, especially an unprovoked one. In his case, we have to say that his VTE event was essentially unprovoked, thus the risk for recurrence is up to 20-30% over the two years following discontinuation of anticoagulation.In light of this, we think his recurrence risk is high enough and the consequences of recurrence potentially severeenough that consideration for ongoing anticoagulation is in his best interest at this time. Anticoagulation reduces the risk for VTE recurrence to about 1% per year at the hazard of a major bleeding risk that is also about 1% per year. We conceded that life-threatening bleeding is risk with anticoagulation but that the risk for this is currently outweighed by his risk for serious thrombosis without anticoagulation. Given that he has tolerated apixaban it is reasonable to continue. 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 Our recommendation is therefore to continue with apixabanfor the shelter, substituting the 2.5 mg dose for the 5 mg dose after he has completed a total of6 months of anticoagulation and we defer to his PCP to do this. He is perfectly amenable to that approach, especially since he feels so much better on anticoagulation. The risk/benefit calculation for continuing with anticoagulation may electronic data interchange specialist time, however, and should be revisited periodically. The alternative is low dose daily aspirin (81 mg) but while aspirin is effective for arterial thromboprophylaxis, its value for venous thromboprophylaxis is limited and inferior to anticoagulation. We reviewed the idea that should he require surgery or other invasive procedures, temporary interruption of apixaban is recommended. He simply needs to hold the medication for 2 days prior to the procedure and restart after the procedure. We told him that we would be happy to help out with specific recommendations in the future if the issue comes up. Although the risk for a recurrent event on anticoagulation is low, it is not zero, and we reviewed signs and symptoms of DVT and PE and reminded him to seek medical attention expeditiously should they occur. In summary: ?? 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 ?? 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 Frank/RADHA Huertas to manage the prescription ?? Seek medical attention for new VTE symptoms ?? Hold apixaban for 2 days prior to invasive procedures ?? No further thrombophilia testing at this time. ?? No concurrent aspirin. Judicious NSAID use Edgardo had the opportunity to ask questions and indicated that all his questions were answered to his satisfaction. While we won't plan to see him back routinely, we'll be happy to see him back at anytime in the future as appropriate and would especially welcome the opportunity to provide recommenda tions for anticoagulant management around invasive procedures should the need arise. Alana Hope MD Technical Service Specialist, [facility] documented in this encounter Plan of Treatment Not on file documented as of this encounter Visit Diagnoses Diagnosis Other acute pulmonary embolism without acute cor pulmonale Anticoagulated by anticoagulation treatment Encounter for long-term (current) use of anticoagulants documented in this encounter Care Teams Salon Shampoo Assistant Relationship Specialty Start Date End Date Silvana Huertas APRN PCP - General Family Medicine 05/26/18 documented as of this encounter
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
--- OUTSIDE RECORDS SUMMARY | 2024-08-12 01:50 | XMS_ITS | Encounter Summary ---
[place] [address] Care Team Providers Care Knot Bumper Name Role Phone Unavailable Primary Care Provider Unavailabl e Encounter Details Date Type Department Care Team (Late st Contact Info) Description 05/14/2018 External Results [facility] [place] [address] Social History Tobacco Use Types Packs/Day Years Used Date Smoking Tobacco: Never Assessed Sex and Gender Information Value Date Recorded Sex Assigned at Not on file Gender Identity Not on file Sexual Orientation Not on file documented as of this encounter Plan of Treatment Not on file documented as of this encounter Procedures Procedure Name Priority Date/Time Associated Diagnosis Comments ECG SCAN Routine 05/14/2018 documented in this encounter Results * Scan Doc: ECG (05/14/2018) Historical Provider MD GARCIA MGArnoldo SCAN EX T ORDR/RSLT documented in this encounter Visit Diagnoses Not on filedocumented in this encounter
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
--- OUTSIDE RECORDS SUMMARY | 2024-08-12 01:50 | XMS_ITS | Encounter Summary ---
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 Pulmonary embolism and infarction/eval and treat Procedures Pulmonary embolism and infarction/eval and treat Jesusita Frank MD [address] [place] [address] Alana Hope MD [facility] [place] [address] Referral ID Status Reason Start Date Expiration Date V isits Requested Visits Authorized [id number] Closed Consult, Test & Treat PCP Updated and/or Approved 08/29/2018 08/29/2019 1 1 Encounter Details Date Type Department Care Team (Latest Contact Info) Description 08/01/2018 10:00 AM EST Office Visit Hematology [place] [address] Alana Hope MD [facility] [place] [address] Rayna Weinstein MD Other acute pulmonary embolism without acute cor pulmonale; Anticoagulated by anticoagulation treatment Social History Tobacco Use Types Packs/Day Years Used Date Smoking Tobacco: Former Cigarettes Q uit: 1997 Smokeless Tobacco: Never Tobacco Cessation:Counseling Given: Yes Sex and Gender Information Value Date Recorded Sex Assigned at Not on file Gender Identity Not on file Sexual Orientation Not on file documented as of this encounter Last Filed Vital Signs Vital Sign Reading Time Taken Comments Blood Pressure 144/93 08/01/2018 9:43 AM EST Pulse 91 08/01/2018 9:43 AM EST Temperature 36.6 ??C (97.9 ??F) 08/01/2018 9:43 AM ES T Respiratory Rate 20 08/01/2018 9:43 AM EST Oxygen Saturation 97% 08/01/2018 9:43 AM EST Inhaled Oxygen Concentration - - Weight 108 kg (238 lb) 08/01/2018 9:43 AM EST Height 176 cm (5' 9.29) 08/01/2018 9:43 AM EST Body Mass Index 34.85 08/01/2018 9:43 AM EST documented in this encounter Progress Notes * Rayna Arreola MD - 08/01/2018 10:00 AM EST Images from the original note were not included. [facility] [place] [address] THROMBOSIS CONSULTATION DATE OF VISIT 08/01/2018 Patient Javier Schrader 1960 REFERRING PHYSICIAN Jesusita Frank MD PRIMARY CARE PHYSICIAN Silvana Huertas APRN REASON FOR CONSULTATION Management of recently diagnosed PE with pulmonary infarction HISTORY OF THE PRESENT ILLNESS Javier Schrader is a 58 y.o. man with PMH of HTN, HLD and bilateral PE, who is seen in consultation at the request of Jesusita Frank MD for management of recently diagnosed bilateral PE. The history is obtained from the patient, and I have reviewed extensive medical records provided by the referring physician and located in the electronic medical record to fill in gaps in the patient's recollection of events, treatments and outcomes. Javier Schrader is a 58yo man with who is presenting to the clinic for management of bilateral pulmonary embolism. He had presented to [facility] ED with pleuritic chest pain and SOB and was diagnosed with bilateral segmental/subsegemental PE in the upper and lower lobes. He noted that he had sprained his ankle about 12 days before presentation. He had gone to [place] after that (in a truck) which was a 18-hour drive (one way). He was stopping every 4-5 hours during the drive and walking around. He started having SOB the day after he returned from [place] and continued to be active (walking on treadmill and with his dogs). He was not feeling well and tried to see his PCP but not able to getan urgent appointment. So he decided to go to [facility] ED and was diagnosed with b/l PE. He was initially started on therapeutic lovenox and was transitioned to Eliquis. He noted that the chest pain resolves after 4-5 days. He is currently on Eliquis 5mg BID and noted that he has been feeling more tired since he started taking the Eliquis. He reports that his breathing is back to baseline and denies any increased bruising, epitaxis, dark/bloody stools, hematuria. He had a screening colonoscopy 3 years ago and he will return for the next colonoscopy in 5 years. No personal history of VTE and family history of VTE. Denies taking any hormonal supplements. THROMBOSIS RISK FACTORS Risk Factor Comment Obesity (BMI >30 kg/m2) V/A Body mass index is 34.85 kg/m??. Diabetes V/A NA Current smoker V/A NA, former smoker: was smoking 1ppd for about 20 year, quit in 1997 Inflammatory disease V/A NA Recent surgery (<3 months) V NA Recent hospitalization (<3 mo) V NA Recent travel (<3 mo) V Long drive to [place] (18 hours) with few stops Period of immobility V NA Documented thrombophilia V NA Accident/Trauma V/A R ankle sprain before the presentation Cancer or treatment for cancer V/A NA Blood transfusion V/A NA Central venous catheter V NA Family history (1st degree) V/A NA Varicose veins/venous insuff. V NA Hypertension A Yes, not on medication Hyperlipidemia A Yes, not on medication Vascular disease A NA V: Risk factor for venous thrombosis; A: Risk factor for arterial thrombosis PAST MEDICAL HISTORY - hypertension (intermittently, started [...] visit. ADVERSE DRUG REACTIONS Allergies as of 08/01/2018 ??? 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 GENERAL: Well-appearing, articulate white male HEENT: Oropharynx clear; no mucosal lesions, petechiae, bleeding, thrush or ulcers. NECK: Supple; no cervical, supraclavicular or submental adenopathy. LUNGS: Clear to auscultation/percussion. No rales, rhonchi, wheezes. HEART: Regular rate and rhythm; no murmur, rub, gallop GASTROINTESTINAL: Abdomen soft, non-tender, no hepatosplenomegaly. EXTREMITIES: No LE edema. No venous varicosities. No skin discoloration or hemosiderin deposits. Peripheral pulses palpable. SKIN: No ecchymoses, petechiae, ulcers or rashes. LYMPH: No palpable lymph nodes. NEUROLOGIC: Alert, oriented. Speech clear, coherent. No focal deficits noted. PSYCHIATRIC: Appropriate affect, no apparent distress. LABORATORY STUDIES Pending. RADIOGRAPHIC STUDIES Reviewed reports and images of the CTA and ultrasound of the lower extremity performed at the outside hospital IMPRESSION Javier Schrader is a 58 y.o. man with PMH of HTN, HLD and recently diagnosed bilateral PE, who is presenting to the thrombosis clinic for evaluation/management of the recently diagnosed bilateral PE. We discussed that based on the above evaluation, patient has no obvious major triggers for the bilateral pulmonary embolisms. He did have a right ankle injury, however was not immobilized by it and continued to do his normal activities. He had taken appropriate breaks on his journey to and from [place] and was ambulating during these breaks. 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 We reviewed that the anticoagulation for unprovoked VTE is usually longer/long- term. He does have risk factors for VTE which are not modifiable (in the immediate setting) such as obesity. We discussed that there are familial/genetic conditions which can increase the risk for unprovoked VTE. He doesnot have a clear family history for these, however it is possible for the thrombophilia condition not to be manifested in all the carriers. Hence, we recommended performing a thrombophilia screening today. In addition, studies have shown that male patients with VTE are at a higher risk to have recurrent VTE compared to female patients. Hence, we would recommend anticoagulation long-term. We will discuss the duration and dosing of anticoagulation when he returns for follow-up after the thrombophilia screening. PLAN/RECOMMENDATIONS - Given the lack of obvious triggers prior to his presentation with bilateral PE, we would recommend getting blood draw today for thrombophilia screening. - We recommend continuing with the current dose of Eliquis 5 mg BID for now until he returns for follow-up to discuss the results of the thrombophilia testing. - If the thrombophilia testing is negative, we would recommend to continue the full dose anticoagulation for at least 6 months from the diagnosis and then discuss about continuing with prophylactic dose of anticoagulation after that, given that he is at higher risk for recurrent VTE because of his male gender as well as obesity. - We will plan to have him return in 4 weeks to discuss the results of the testing and management for his VTE accordingly. Javier Schrader had the opportunity to ask questions and indicated that all his questions were answered to his satisfaction. He will follow up with me in approximately three weeks to discuss the results of the thrombosis testing, and I will finalize my recommendations at that time. Rayna Arreola MD Hematology/Oncology Fellow +*+*+*+*+*+*+*+*+*+*+*+*+*+*+*+*+*+*+*+*+*+*+*+*+*+*+*+*+*+*+*+*+*+*+*+*+*+* Thrombosis Attending Physician I have independently [...] made any additions/corrections below. In brief, Edgardo developed multiple bilateral PE in the fall. Though he had an ankle sprain and a long car trip preceding the event, he was not immobilized and stopped quite often for breaks during the car trip. As above, though there is no family history of VTE, it is possible that he has a hereditary or acquired thrombophilia and testing is worthwhile given the lack of obvious major provocation for this rather serious event. Accordingly, he'll have his blood drawn for a standard thrombophilia screen (omitting [place] as he is on a DOAC). In light of the unprovoked nature of the event, consideration for ongoing anticoagulation after the initial 3 month period should be made given the high risk for recurrence. The dose of apixaban can be lowered at the 6 month point. Javier Schrader had the opportunity to ask questions and indicated that all his questions were answered to his satisfaction. He'll follow up with us in about 3 weeks to review the results of thrombophilia screening and we'll finalize our anticoagulation recommendations at that time. Alana Hope MD [facility] * Alana Hope MD - 08/01/2018 10:00 AM EST +*+*+*+*+*+*+*+*+*+*+*+*+*+*+*+*+*+*+*+*+*+*+*+*+*+*+*+*+*+*+*+*+*+*+*+*+*+* Thrombosis Attending Physician I have independently [...] made any additions/corrections below. In brief, Edgardo developed multiple bilateral PE in the fall. Though he had an ankle sprain and a long car trip preceding the event, he was not immobilized and stopped quite often for breaks during the car trip. As above, though there is no family history of VTE, it is possible that he has a hereditary or acquired thrombophilia and testing is worthwhile given the lack of obvious major provocation for this rather serious event. Accordingly, he'll have his blood drawn for a standard thrombophilia screen (omitting LA as he is on a DOAC). In light of the unprovoked nature of the event, consideration for ongoing anticoagulation after the initial 3 month period should be made given the high risk for recurrence. The dose of apixaban can be lowered at the 6 month point. Javier Kancitlaly had the opportunity to ask questions and indicated that all his questions were answered to his satisfaction. He'll follow up with us in about 3 weeks to review the results of thrombophilia screening and we'll finalize our anticoagulation recommendations at that time. Alana Hope MD [facility] documented in this encounter Miscellaneous Notes * Addendum Note - Alana Hope MD - 08/01/2018 10:00 AM ESTAddended by: ALANA HOPE on: 08/01/2018 03:19 PM Modules accepted: Level of Service documented in this encounter Plan of Treatment Not on file documented as of this encounter Visit Diagnoses Diagnosis Other acute pulmonary embolism without acute cor pulmonale Anticoagulated by anticoagulation treatment Encounter for long-term (current) use of anticoagulants documented in this encounter Care Teams Healthcare Risk Control Consultant Relationship Specialty Start Date End Date Silvana Huertas, TELEVISION ANALYZER PCP - General Family Medicine 05/26/18 documented as of this encounter
--- OUTSIDE RECORDS SUMMARY | 2024-08-12 01:50 | XMS_ITS | Clinical Summary ---
Author Organization [facility] Address [facility] [place] [address] Care Team Providers Care Shoe Shiner Name Role Phone Silvana Huertas APRN Primary Care Provider [phone] Allergies No known active allergies Medications Medication Sig Dispensed Refills Start Date End Date Status apixaban (ELIQUIS) 5 mg Tablet Take 5 mg by mouth 2 times daily. Active atorvastatin (Lipitor) 40 mg Tablet Take by mouth. 12/29/2020 Active fluorouraciL (EFUDEX) 5 % CreamIndications:Actini c keratoses Apply twice a day for three weeks. Avoid sun exposure. 40 g 03/02/2021 Active Active Problems No known active problems Social History Tobacco Use Types Packs/Day Years Used Date Smoking Tobacco: Former Cigarettes Q uit: 1997 Smokeless Tobacco: Never Tobacco Cessation:Counseling Given: Yes Sex and Gender Information Value Date Recorded Sex Assigned at Not on file Gender Identity Not on file Sexual Orientation Not on file Last Filed Vital Signs Vital Sign Reading [...] Mass Index 35.58 08/29/2018 11:18 AM EST Plan of Treatment Health Maintenance Due Date Last Done Comments CT Colonography 1960 Colonoscopy 1960 Colorectal Cancer Screening 1960 FIT DNA 1960 FIT 1961 Sigmoidoscopy (10 year) with FIT yearly 1960 Sigmoidoscopy 1960 HIV screen 1979 Hepatitis C Screening 1979 Tetanus/Diphtheria/Pertussis Vaccines (1 - Tdap) 04/14 Pneumoccocal Vaccine: 50+ (1 of 1 - PCV) 2011 Zoster vaccine (1 of 2) 2011 Advance Directive 2016 Covid-19 Vaccine (1 - 2023- season) 2024 Influenza (Flu) vaccine (1 o f 1 - Influenza standard series) 03/08/2024 Care Teams Shoe Shiner Relationship Specialty Start Date End Date Silvana Huertas APRN PCP - General Family Medicine 05/26/18
--- OUTSIDE RECORDS SUMMARY | 2024-08-12 01:50 | XMS_ITS | Encounter Summary ---
Author Organization [facility] [place] [address] Care Team Providers Care International Tax Manager Name Role Phone Unavailable Primary Care Provider Unavailabl e Encounter Details Date Type Department Care Team (Latest Contact Info) Description 05/14/2018 2:38 PM EST Hospital Encounter Radiology Library at [facility] [place] [address] Salvador Sena MD [facility] [place] [address] Discharge Disposition: Home Social History Tobacco Use Types Packs/Day Years Used Date Smoking Tobacco: Never Assessed Sex and Gender Information Value Date Recorded Sex Assigned at Not on file Gender Identity Not on file Sexual Orientation Not on file documented as of this encounter Plan of Treatment Not on file documented as of this encounter Procedures Procedure Name Priority Date/Time Associated Diagnosis Comments FILM LIBRARY STORAGE ONLY DX CHEST Routine 05/14/2018 2:38 PM EST documented in this encounter Results * Film Library- Storage Only DX Chest (05/14/2018 2:38 PM EST) Narrative RAD - 05/14/2018 2:38 PM EST This exam is for storage only and is auto-finalizing. Salvador Sena MD IMG FILM LIBRARY ORD ERABLES [place], [place] documented in this encounter Visit Diagnoses Not on filedocumented in this encounter
--- OUTSIDE RECORDS SUMMARY | 2024-08-12 01:50 | XMS_ITS | Encounter Summary ---
Author Organization [facility] [place] [address] Care Team Providers Care Hotel Maintenance Engineer Name Role Phone Unavailable Primary Care Provider Unavailabl e Encounter Details Date Type Department Care Team (Latest Contact Info) Description 05/14/2018 2:39 PM EST - 05/14/2018 11:59 PM EST Hospital Encounter Radiology Library at [facility] [place] [address] Salvador Sena MD [facility] [place] [address] Discharge Disposition: Home Social History Tobacco Use [...] Associated Diagnosis Comments FILM LIBRARY STORAGE ONLY CT CHEST Routine 05/14/2018 2:39 PM EST documented in this encounter Results * Film Library- Storage Only CT Chest (05/14/2018 2:39 PM EST) Narrative RAD - 05/14/2018 2:39 PM EST This exam is for storage only and is auto-finalizing. Salvador Sena MD IMG FILM LIBRARY ORD ERABLES [place], [place] documented in this encounter Visit Diagnoses Not on filedocumented in this encounter
--- OUTSIDE RECORDS SUMMARY | 2024-08-12 01:50 | XMS_ITS | Encounter Summary ---
Author Organization [facility] [place] [address] Care Team Providers Care Power Supply Engineer Name Role Phone Silvana Huertas APRN Primary Care Provider [phone] Encounter Details Date Type Department Care Team (Late st Contact Info) Description 06/12/2018 [place] [address] Trevin Parker II Social History Tobacco Use Types Packs/Day Years Used Date Smoking Tobacco: Never Assessed Sex and Gender Information Value Date Recorded Sex Assigned at Not on file Gender Identity Not on file Sexual Orientation Not on file documented as of this encounter Miscellaneous Notes * Telephone Encounter - Trevin Parker II - 06/12/2018 4:12 PM EST Scheduled NPW. Scheduled for 08/01. Pt aware documented in this encounter Plan of Treatment Not on file documented as of this encounter Visit Diagnoses Not on filedocumented in this encounter Care Teams Power Supply Engineer Relationship Specialty Start Date End Date Silvana Huertas APRN PCP - General Family Medicine 05/26/18 documented as of this encounter
--- OUTSIDE RECORDS SUMMARY | 2024-08-12 01:50 | XMS_ITS | Encounter Summary ---
Author Organization [facility] [place] [address] Care Team Providers Care Fellmongering Machine Operator Name Role Phone Silvana Huertas APRN Primary Care Provider [phone] Encounter Details Date Type Department Care Team (Latest Contact Info) Description 08/01/2018 10:45 AM EST - 08/01/2018 11:59 PM EST Hospital Encounter Hematology [place] [address] Other acute pulmonary embolism without acute cor pulmonale Discharge Disposition: Home Social History Tobacco Use [...] times daily. documented as of this encounter Plan of Treatment Not on file documented as of this encounter Procedures Procedure Name Priority Date/Time Associated Diagnosis Comments TT Routine 08/01/2018 11:06 AM EST Other acute pulmonary embolism without acute cor pulmonale PTT Routine 08/01/2018 11:06 AM EST Other acute pulmonary embolism without acute cor pulmonale PT Routine 08/01/2018 11:06 AM EST Other acute pulmonary embolism without acute cor pulmonale PLAT Routine 08/01/2018 11:06 AM EST Other acute pulmonary embolism without acute cor pulmonale FIBR Routine 08/01/2018 11:06 AM EST Other acute pulmonary embolism without acute cor pulmonale THROMBOSIS SCREEN Routine 08/01/2018 11: 06 AM EST Other acute pulmonary embolism without acute cor pulmonale THS REPORT Routine 08/01/2018 11:06 AM EST Other acute pulmonary embolism without acute cor pulmonale PROTEIN S ACTIVITY Routine 08/01/2018 11 :06 AM EST APC RESISTANCE Routine 08/01/2018 11:06 AM EST PROTHROMBIN GENE MUTATION Routine 08/01/2018 11:06 AM EST BETA-2 GLYCOPROTEIN ANTIBODIES Routine 08/01/2018 11:06 AM EST Other acute pulmonary embolism without acute cor pulmonale PROTEIN C ACTIVITY Routine 08/01/2018 11 :06 AM EST CARDIOLIPIN ANTIBODY SCREEN Routine 08/01/2018 11:06 AM EST Other acute pulmonary embolism without acute cor pulmonale ANTITHROMBIN Routine 08/01/2018 11:06 AM EST HOMOCYSTEINE TOTAL, PLASMA Routine 08/01/2018 11:06 AM EST Other acute pulmonary embolism without acute cor pulmonale THROMBOSIS SCREEN REPORT Routine 08/01/2018 10:56 AM EST documented in this encounter Results * Prothrombin gene mutation (08/01/2018 11:06 AM EST) [facility] Prothrombin Mutation Negative [facility] Prothrombin Mutation Interp RESULT: NEGATIVE for the Factor II 10874V>A variant in 3? untranslated region of the prothrombin gene INTERPRETATION: The negative finding indicates that this patient is not at increased risk of thrombosis resulting from a Factor II 17155E>A associated elevation of prothrombin. Negative results indicate the absence of the prothrombin 61815I>A variant ([id number] 13G>A, [id number]), but do not rule out the presence of other rare variants within the prothrombin gene or other causes of thromboembolic disease. Clinical correlation is recommended. METHODS: The region of interest in the Prothrombin gene (40490K>A) is interrogated using a TaqMan allelic discrimination assay. Genomic DNA was isolated from the submitted peripheral blood specimen. Real-time PCR was performed to amplify a short region spanning the variant site, and genotyping was performed by allelic discrimination using a mixture of fluorescently labeled probes, one of which is specific for the reference sequence, the other specific for the variant allele. This test was developed and its performance characteristics determined by the [facility] at [facility]. It has not been cleared or approved by the FDA. The laboratory is regulated under CLIA as qualified to perform high-complexity testing. This test is used for clinical purposes. It should not be regarded as investigational or for research. [facility] Comment: [VERIFIED DATE]08.06.18 Verified By:Rell Dumont MD Hematopathologist (Electronic Signature) Blood specimen (specimen) Venous Draw / Unknown 08/01/2018 11:06 AM EST 08/01/2018 2:03 PM EST Narrative Resulting Agency Comment Spec In Lab Rayna Weinstein MD MOLECULAR ORDERABLES Performing Organization Address City/[facility]/ZIP Co de Phone Number [facility] [place] [place] [address] * Protein S Activity (08/01/2018 11:06 AM EST) Pathologist [facility] Protein S Act 145 64 - 149 % activity [facility] Blood specimen (specimen) Venous Draw / Unknown 08/01/2018 11:06 AM EST 08/01/2018 11:29 AM EST Narrative Resulting Agency Comment Spec In Lab Rayna Weinstein MD HEMATOLOGY ORDERABLE S Performing Organization Address City/[facility] Co de Phone Number [facility] [place] [address] * Protein C activity (08/01/2018 11:06 AM EST) Protein C Activity 117 70 - 140 % [facility] Blood specimen (specimen) Venous Draw / Unknown 08/01/2018 11:06 AM EST 08/01/2018 11:29 AM EST Narrative Resulting Agency Comment Spec In Lab Rayna Weinstein MD HEMATOLOGY ORDERABLE S Performing Organization Address [facility]/ZIP Co de Phone Number [facility] [place] [address] * Antithrombin (08/01/2018 11:06 AM EST) Antithrombin III Assay 100 83 - 128 % [facility] Blood specimen (specimen) Venous Draw / Unknown 08/01/2018 11:06 AM EST 08/01/2018 11:29 AM EST Narrative Resulting Agency Comment Spec In Lab Rayna Weinstein MD HEMATOLOGY ORDERABLE S Performing Organization Address [facility]/ZIP Co de Phone Number [facility] [place] [address] * APC resistance (08/01/2018 11:06 AM EST) Pathologist [facility] Activated Protein C Resistance 2.78 >=2.17 [facility] Blood specimen (specimen) Venous Draw / Unknown 08/01/2018 11:06 AM EST 08/01/2018 11:29 AM EST Narrative Resulting Agency Comment Spec In Lab Rayna Weinstein MD HEMATOLOGY ORDERABLE S Performing Organization Address City/[facility] Co de Phone Number [facility] [place] [address] * Beta-2 glycoprotein antibodies (08/01/2018 11:06 AM EST) Beta 2 Glycoprotein, IgG <9.4 <=20.0 unit(s) [facility] Beta 2 Glycoprotein, IgM <9.4 <=20.0 unit(s) [facility] B2GPI Interp See Thrombosis Screen [facility] Blood specimen (specimen) 08/01/2018 11:06 AM EST 08/01/2018 2:55 PM EST Narrative Resulting Agency Comment Spec In Lab Rayna Weinstein MD IMMUNOLOGY ORDERABLE S Performing Organization Address [facility] Co de Phone Number [facility] [place] [address] * Homocysteine Total, Plasma (08/01/2018 11:06 AM EST) Homocystine 14 <=15 mcmol/L [facility] Blood specimen (specimen) 08/01/2018 11:06 AM EST 08/01/2018 11:29 AM EST Narrative Resulting Agency Comment Spec In Lab Rayna Weinstein MD CHEMISTRY ORDERABLES Performing Organization Address [facility] Phone Number [facility] [place] [address] * Cardiolipin Antibody Screen (08/01/2018 11:06 AM EST) Cardiolipin Antibody IgG 13.1 <=14.9 GPL unit(s) [facility] Comment: Ranges ?? GPL ------ ?? --- Negative ?? <=14.9 Indeterminate ??15.0 - 20.0 Low/Medium Positive 20.1 - 80.0 High Positive ??>80.0 Cardiolipin Antibody IgM <9.4 <=12.5 MPL unit(s) [facility] Comment: Ranges ?? MPL ------ ?? --- Negative ?? <=12.5 Indeterminate ??12.6 - 20.0 Low/Medium Positive 20.1 - 80.0 High Positive ??>80.0 Blood specimen (specimen) 08/01/2018 11:06 AM EST 08/01/2018 2:55 PM EST Narrative Resulting Agency Comment Spec In Lab Rayna Weinstein MD IMMUNOLOGY ORDERABLE S Performing Organization Address [facility] Co de Phone Number [facility] [place] [address] * THS Report (08/01/2018 11:06 AM EST) THS Report See Comment [facility] Comment:See Thrombosis Scree n Report [id number] under Hematopathology Reports. Blood specimen (specimen) 08/01/2018 11:06 AM EST 08/01/2018 11:29 AM EST Narrative Resulting Agency Comment Spec In Lab Rayna Weinstein MD HEMATOLOGY ORDERABLE S [facility] [place] [address] * Plat (08/01/2018 11:06 AM EST) Platelet 309 145 - 357 x10(3)/mc L [facility] Immature Plt % 1.4 0.0 - 7.4 % [facility] Comment: Limitation of the Immature Platelet Fraction (IPF)-May be less reliable when the platelet count is less than 58w217/uL due to statistical imprecision. The IPF value provides an assessment of the Bone Marrow production status. ??It is useful in differentiating Thrombocytopenia caused by platelet destruction/consumption versus decreased production. It also helps to determine the imminent release of platelets and can be therefore a helpful parameter in Chemotherapy and Bone marrow transplant patients. ELEVATED IPF value: ?? When the bone marrow is in a state of over production such as when increased destruction and consumption are the underlying issue. ?? When the marrow is recovering post chemotherapy or bone marrow transplant. LOW to NORMAL IPF value: ?? When the bone marrow in not responding and is in a decreased state of production. References: [employer] The Clinical Value of the Immature Platelet Fraction (IPF) in Cell Recovery Document Number 10-1143 12/2010 [employer] The Role of the Immature Platelet Fraction (IPF) in the Differential Diagnosis of Thrombocytopenia, Document MKT-[id number] V05/12/14 P05/14 Blood specimen (specimen) 08/01/2018 11:06 AM EST 08/01/2018 11:29 AM EST Narrative Resulting Agency Comment Spec In Lab Rayna Weinstein MD HEMATOLOGY ORDERABLE S Performing Organization Address [facility] de Phone Number [facility] [place] [address] * TT (08/01/2018 11:06 AM EST) Thrombin Time 13 10 - [address] [facility] Comment: A prolongation in the thrombin time (>20 seconds) may be indicative of hypofibrinogenemia or dysfibrinogenemia. The thrombin time will be prolonged, often markedly so, by the presence of heparin or direct thrombin inhibitors (argatroban, bivalirudin, dabigatran) in the specimen. Blood specimen (specimen) 08/01/2018 11:06 AM EST 08/01/2018 11:29 AM EST Narrative Resulting Agency Comment Spec In Lab Rayna Weinstein MD HEMATOLOGY ORDERABLE S Performing Organization Address [facility] Co de Phone Number [facility] [address] * FIBR (08/01/2018 11:06 AM EST) Fibrinogen 354 200 - 393 mg/dL [facility] Comment: A fibrinogen level >100 mg/dL is adequate for hemostasis in most patients without underlying bleeding disorders. Blood specimen (specimen) 08/01/2018 11:06 AM EST 08/01/2018 11:29 AM EST Narrative Resulting Agency Comment Spec In Lab Rayna Weinstein MD HEMATOLOGY ORDERABLE S Performing Organization Address [facility] Co de Phone Number [facility] [address] * PTT (08/01/2018 11:06 AM EST) Partial Thromboplastin Time 31 25 - [address] [facility] Comment: The PTT is NOT appropriate for heparin monitoring. Use the Anti-Xa level for heparin monitoring (HEP UFH) or LMWH monitoring (HEP LMW). A PTT less than 37 seconds generally indicates adequate hemostasis. Blood specimen (specimen) 08/01/2018 11:06 AM EST 08/01/2018 11:29 AM EST Narrative Resulting Agency Comment Spec In Lab Rayna Weinstein MD HEMATOLOGY ORDERABLE S Performing Organization Address [facility] de Phone Number [facility] [place] [address] * PT (08/01/2018 11:06 AM EST) Pathologist [facility] Prothrombin Time 12.2 9.4 - 12.[address] [facility] International Normalization Ratio 1.1 [facility] Comment: An INR <2.0 indicates adequate procoagulant activity for hemostasis in most patients without underlying bleeding disorders, though the INR may not adequately reflect hemostatic capacity in patients with liver disease and synthetic impairment. The recommended target INR range for therapeutic anticoagulation is 2.0 ? 3.0 for most applications, though lower and higher ranges may be appropriate depending on clinical circumstances. Blood specimen (specimen) 08/01/2018 11:06 AM EST 08/01/2018 11:29 AM EST Narrative Resulting Agency Comment Spec In Lab Rayna Weinstein MD HEMATOLOGY ORDERABLE S Performing Organization Address [facility] de Phone Number [facility] [place] [address] * Thrombosis Screen Report (08/01/2018 10:56 AM EST) Thrombosis Screen Report [id number] ? Location: 3K The signing pathologist has (i) examined the relevant preparation(s) for the specimen(s) and (ii) rendered or confirmed the diagnosis(es). . ? Thrombosis Screen DIAGNOSIS Negative test results for thrombotic risk factors commonly associated with thromboembolic disease. limited test performed see discussion Electronically signed by: ??Justino Campbell MD Verified: ??08/29/2018 ?Hematopathologis t Performed at: ??-[facility] Dept. of Pathology, [place], [place] ADDITIONAL STUDIES TEST ?? RESULT ?REFERENCE RANGE Platelet count [...] antibodies(IGG) ?13.1 ?<=14.9 GPL unit(s) Anticardiolipin antibodies(IGM) ?<9.4 ?<=12.5 MPL units Beta-2 glycoprotein-1 antibody IgG ?<9.4 ?<=20.0 unit(s) Beta-2 glycoprotein-1 antibodyIgM ? <9.4 ? <=20.0 unit(s) Homocysteine, random, plasma ?14 ? ( ? to 15 mcmol/L) if APCR< 2.0 FV Leiden mutation ? NOT DONE ?(negative) Prothrombin (97378 G ? A) mutation ?neg ? (negative) ??* Functional assay for protein C and protein S DISCUSSION The screening test for resistance to activated protein C (APC) is normal, DNA assay for Factor V Leiden mutation is not indicated. Factor Xa inhibitors such as rivaroxaban, apixaban, and edoxaban can cause a false positive LA test. A positive anti-Xa assay with a normal TT can be used to detect the presence of factor Xa inhibitor. As these factor Xa inhibitors cannot be neutralized, LA testing may generate inaccurate results and consequently not performed. Factor Xa inhibitors also prolong PT, PTT. Levels of protein C and protein S may be overestimated in the presence of rivaroxaban or apixaban. If there is strong suspicion for a deficiency of one of these proteins, suggest repeat testing after discontinuation of the potentially interfering medication for at least 48 hours. Hematology and Thrombosis consult maybe recommended to rule out other causes for thrombophilia. Correction Note: ??Typo errors corrected. Interpretation results remain the same. _ . CLINICAL INFORMATION Bilateral PE on DOAC [facility] 08/01/2018 10:5 6 AM EST Rayna Weinstein MD PATHOLOGY/CYTOLOGY [place] BE [facility] [place] [address] documented in this encounter Visit Diagnoses Diagnosis Other acute pulmonary embolism without acute cor pulmonale documented in this encounter Care Teams Fellmongering Machine Operator Relationship Specialty Start Date End Date Silvana Huertas, [employer] PCP - General Family Medicine 05/26/18 documented as of this encounter
--- OUTSIDE RECORDS SUMMARY | 2024-08-12 01:50 | XMS_ITS | Encounter Summary ---
Author Organization [facility] [place] [address] Care Team Providers Care Photographer Assistant Name Role Phone Unavailable Primary Care Provider Unavailabl e Encounter Details Date Type Department Care Team (Late st Contact Info) Description 05/14/2018 [place] [id number] Bernie Anaya MD [facility] [place] [address] Social History Tobacco Use Types Packs/Day Years Used Date Smoking Tobacco: Never Assessed Sex and Gender Information Value Date Recorded Sex Assigned at Not on file Gender Identity Not on file Sexual Orientation Not on file documented as of this encounter Miscellaneous Notes * Telephone Encounter - Bernie Anaya MD - 05/14/2018 6:27 PM EST Telephone Triage Note Initial Contact Date: 05/14/2018 Initial contact time: ~1430pm Referring Provider: Dr. Swanson Patient Location: [facility] ED, [facility] Presenting Symptoms per OSH: 58yoM w/h/o untreated HLD and recent travel history presents with two weeks of BOOTH and three days of pleuritic chest pain found to have bilateral segmental PEs. Pertinent Diagnostic Findings: Vitals: BP 126/72 HR 97 SaO2 99% on 2L EKG : SR + PAC, poor R wave progression Troponin : negative ProBNP: negative (45) CT chest: multiple bilateral segmental PEs, called by radiology to show RV strain. Per my review, mild RV dilation with no cotrast reflux into the IVC or hepatic veins TTE: (by report) RV not significantly dilated, normal function, no evidence of RV strain (images not reviewed by me, verbal report only) OSH Interventions: Enoxaparin x1 Assessment/Plan: 58yoM w/ bilateral PEs, hemodynamically stable with low sPESI score and no significant evidence of right heart strain. No indication to proceed with catheter directed therapies at this time. Appropriate to continue to treat locally with systemic anticoagulation. Call back if change in clinical status or new evidence of right heart strain. Discussed with LD-PE attending Dr. Winchester. documented in this encounter Plan of Treatment Not on file documented as of this encounter Visit Diagnoses Not on filedocumented in this encounter
--- OUTSIDE RECORDS SUMMARY | 2024-08-12 01:50 | XMS_ITS | Encounter Summary ---
Author Organization [facility] [place] [address] Care Team Providers Care [employer] Name Role Phone Silvana Huertas APRN Primary Care Provider [phone] Encounter Details Date Type Department Care Team (Late st Contact Info) Description 06/12/2018 Orders [place] [address] Mic Diaz MD [facility] [place] [address] Pulmonary HTN (Primary Dx) Social History Tobacco Use Types Packs/Day Years Used Date Smoking Tobacco: Never Assessed Sex and Gender Information Value Date Recorded Sex Assigned at Not on file Gender Identity Not on file Sexual Orientation Not on file documented as of this encounter Plan of Treatment Not on file documented as of this encounter Results * Pulmonary Function Testing [...] in this encounter Visit Diagnoses Diagnosis Pulmonary HTN- Primary Other chronic pulmonary heart diseases Pulmonary HTN Other chronic pulmonary heart diseases documented in this encounter Care Teams Sap [employer] Security Relationship Specialty Start Date End Date Silvana Huertas, [employer]ISON LIB[employer]ARIAN PCP - General Family Medicine 05/26/18 documented as of this encounter
--- OUTSIDE RECORDS SUMMARY | 2024-08-12 01:50 | XMS_ITS | Encounter Summary ---
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 Name Role Phone Silvana Huertas APRN Primary Care Provider [phone] Reason for Visit * Reason Comments Referral * Consultation (FRAN) - Specialty Diagnoses / Procedures Referred By Contac t Referred To Contact Pulmonology Diagnoses Bilateral pulmonary embolism Pulmonary hypertension Clint Nj MD [address] [place] [address] [facility] Pulmonology [address] [place] [phone] Referral ID Status Reason Start Date Expiration Date V isits Requested Visits Authorized [id number] Consult, Test & Treat PCP Updated and/or Approved 05/20/2018 11/17/2018 6 6 Encounter Details Date Type Department Care Team (Late st Contact Info) Description 08/01/2018 11:00 AM EST Office [place] [address] Mic Diaz MD [facility] [place] [address] Other acute pulmonary embolism without acute cor pulmonale Social History Tobacco Use Types Packs/Day Years Used Date Smoking Tobacco: Former Cigarettes Q uit: 1997 Smokeless Tobacco: Never Sex and Gender Information Value Date Recorded Sex Assigned at Not on file Gender Identity Not on file Sexual Orientation Not on file documented as of this encounter Last Filed Vital Signs Vital Sign Reading Time Taken Comments Blood Pressure - - Pulse 99 08/01/2018 10:32 AM EST Temperature - - Respiratory Rate - - Oxygen Saturation 97% 08/01/2018 10:32 AM EST Inhaled Oxygen Concentration - - Weight 111.1 kg (245 lb) 08/01/2018 10:32 AM EST Height 176 cm (5' 9.3) 08/01/2018 10:32 AM EST Body Mass Index 35.87 08/01/2018 10:32 AM EST documented in this encounter Progress Notes * Mic Diaz MD - 08/01/2018 11:00 AM EST Images from the original note were not included. Pulmonary Clinic Consult Note Reason for Consult: I was asked by Silvana Huertas APRN to evaluate this patient for PE I have personally interviewed and examined the patient, reviewed history, radiographic studies( if any) and laboratory data(if any). HPI: This is a 58 y.o. male, was referred for pulmonary evaluation after an event of acute PE. He was diagnosed to for multiple subsegmental PE on 05/14/2018. He was seen at [facility] and has started on anticoagulation. Currently, he is taking Eliquis. Reportedly, at that time, he presented with 2 weeks history of exertional dyspnea. No clear risk factors for pulmonary emboli was identified except for a long drive (approximately [address] CT showed multiple bilateral segmental PE( I personally reviewed) with mild RV dilation withoutcontrast reflux into IVC nor hepatic veins. Per cardiology consult note, TTE was negative for RV dilatation and there was no evidence of RV strain. Catheter directed therapy was felt not indicated and continuing systemic anticoagulation was recommended. Today, he presented with no symptom. He feels healthy at this time. He has no history of pulmonary diseases in the past. He denied a cough, wheezing, shortness of breath or chest pain. He had a pulmonary function testing today, which demonstrated a normal spirometry, a normal diffusing capacity. He did not desaturate on ambulation. I have reviewed the CT angiogram from 05/14/2018. Other than multiple subsegmental PEs, no major pulmonary abnormality was seen, and the lung parenchyma looks normal (except for mild basal atelectasis). He was seen in hematology clinic today for possible pro thrombotic abnormalities and has been scheduled for follow-up in August. Problem List: There are no active problems to display for this patient. PMHx: No past medical history on file. FHx: No family history on file. Social Hx: Social History Tobacco Use ??? Smoking status: Not on file Substance Use Topics ??? Alcohol use: Not on file ??? Drug use: Not on file Tobacco: Never smoked. Work/Environmental: [employer]. Allergy: Allergies not on file Medications: ROS: x: positive. [ ] Shortness of breath [ ] Abdominal pain or bloating [ ] Frequent or chronic cough [ ] Weight gain or loss [ ] Coughing up blood [ ] Chest pain [ ] Nose, sinus, mouth, throat problems [ ] Palpitations or flutter [ ] Fevers or severe chills [ ] Swelling of hands feet ankles [ ] Night sweats [ ] Convulsions or seizures [ ] Enlarged or swollen lymph glands [ ] Frequent or severe headache [ ] Skin disease or rash [ ] Fainting or loss of consciousness [ ] Easy bruising or bleeding [ ] Extreme fatigue or weakness [ ] Significant joint pains or stiffness [ ] Depression [ ] Changes in bowel habits [ ] Changes in sleep pattern [ ] Changes in appetite [ x ] All unmarked were reviewed and found negative. [ ] other system: Vitals and Physical Exam: Pulse 99 Ht 176 cm (5' 9.3) Wt 111.1 kg (245 lb) SpO2 97% BMI 35.87 kg/m?? Gen: comfortable. Normal breathing pattern and rate. HEENT: Pupils equal and round. EOMI, no pallor no icteric sclera on conjunctiva No thrush Neck: No stridor No cervical LAP Chest: CTA without wheezing/rhonchi/crackles Symmetric excursion. Cor: RRR, S1S2, No MRG. Abd: S/ND/NT Extrem: no C/C/E. Skin no significant rashes Musculoskeletal no significant joint swelling. Neuro: no focal deficits Labs/Tests: Diagnostic studies: -CXR: -CT: 05/14/2018 -PFTs: date FVC FEV1 FEV/FVC VC TLC RV RV/TLC Dsb SpO2 08/01/2018 4.50 95 3.42 94 76 23.72 82 97 # #No significant desaturation nor dyspnea with ambulation. -ECHO: -Serology: -PET: -Biopsy: -Other: Labs Summary: -s/p acute PE, on anticoagulation. Impression/recommendation: -58-year-old man, never smoker, without significant pulmonary history was referred to ask for pulmonary evaluation after recent event of acute PE. He was diagnosed to for multiple subsegmental PE on 05/14/[address] angiogram, which was performed for 2 weeks h/o non-resolving dyspnea. ECHO at that time, reportedly showed NO evidence for RV strain.(Unfortunately, the report is not available for me to review at this time.) -He has started on anticoagulation and today presented to our clinic. He is completely asymptomaticat this point. Exam is normal without sign of edema. PFT was completely normal, including DLco. Also encouraging is that there is no desaturation nor dyspnea on ambulation. -At this time, I don't see any signs to suggest chronic thromboembolic pulmonary hypertension. However, repeating ECHO will be the next step if the concern arise clinically. No other significant pulmonary abnormality was found during this evaluation. -continue Hao, f/u with hematology 48 mins were spent in a face to face conversation with the patient (and accompanying family members, if present) regarding my impressions and recommendations and providing counseling. All the questions were answered. . Separately, I have spent an additional time in reviewing charts/records/labs/tests, or discussion with other health care providers. This does NOT include the time spent in ( ) Smoking cessation counseling ( ) inhaler technique demonstration and teaching. ( checked if applicable) - I personally reviewed (x ) radiographic images. ( x ) pulmonary function testing DATA ( ) Laboratory DATA ( apply if checked ) Thank you very much for participating in the care of this patient. Please contact us at [phone] for any further questions or requests. documented in this encounter Plan of Treatment Not on file documented as of this encounter Visit Diagnoses Diagnosis Other acute pulmonary embolism without acute cor pulmonale documented in this encounter Care Teams Hydraulic Auto Jack Mechanic Relationship Specialty Start Date End Date Silvana Huertas APRN PCP - General Family Medicine 05/26/18 documented as of this encounter
[2024-08-12 09:00] LABS: Hemoglobin A1C 6.2 % (<5.7)
[2024-08-12 09:26] LABS: ALT 35 U/L (16-63); AST 29 U/L (15-37); Alkaline Phosphatase 69 U/L (46-116); Anion Gap 7.6 mmol/L (3-11); BUN 11 mg/dL (7-18); CO2 27.4 mmol/L (21.0-32.0); Calcium 9.4 mg/dL (8.5-10.1); Calculated LDL 113 mg/dL (<100); Chloride 103 mmol/L (98-107); Cholesterol 190 mg/dL (<200); Estimated GFR 84.57 (mL/min/1.73m2); Glucose 106 mg/dL (74-106); HDL Cholesterol 57 mg/dL (40-60); Potassium 4.2 mmol/L (3.5-5.1); Sodium 138 mmol/L (136-145); Total Protein 8.5 g/dL (6.4-8.2); Triglyceride 103 mg/dL (<150)
== END 2024-08-12 01:12 | disposition home or self-care (01) ==
PROVIDERS: PCP Nurse Practitioner; Referring Provider Nurse Practitioner; Visit Provider Nurse Practitioner
DX: I27.20 Pulmonary hypertension, unspecified (principal); E78.5 Hyperlipidemia, unspecified; E66.9 Obesity, unspecified; R73.01 Impaired fasting glucose
CPT/HCPCS: 36415; 80053; 80061; 83036

== ENCOUNTER 2024-12-10 07:34 | Day surgery (SDC) | payer BC, SELFPAY ==
[2024-12-10 07:46] VITALS: BP 131/80; PULSE 67; RESP 18; TEMP 36.7; O2SAT 98
[2024-12-10] MEDS: Lactated Ringers 1,000 ML 80 ML IV (08:05)
--- NOTE | 2024-12-10 08:59 | COLE_ITS ---
Date of service: 12/10/24 Time of Service: 08:59 Colonoscopy Report Procedure Description: PROCEDURES PERFORMED: 1. Colonoscopy with cold forceps polypectomy x7 2. Hot snare polypectomy x1 PREOPERATIVE DIAGNOSIS: Surveillance colonoscopy, colon polyps POSTOPERATIVE DIAGNOSIS: Colorectal polyps, grade 1 internal hemorrhoids SURGEON: Rufino Patiño MD INDICATION FOR PROCEDURE: the patient is a 64-year-old man who has a personal history of adenomatous polyps. No symptoms. No family history of colon cancer. FINDINGS: Normal terminal ileum. Polyps: In the cecum a small 2 to 3 mm sessile polyp was removed with cold forceps technique. In the proximal transverse colon a flat, 3-5 mm polyp was removed with hot snare technique. Further along the transverse colon another 2- 3 mm sessile polyp was removed with cold forceps technique. In the descending colon a 2-3 mm sessile polyp was removed with cold forceps technique. In the sigmoid colon 2 more flat, 2-3 mm polyps were removed with cold forceps technique. In the rectum there are numerous (20?30+) flat polyps that I suspect are all hyperplastic. 2 of these were removed to confirm benign histology. There was no obvious diverticular. Grade 1 internal hemorrhoids are present in the rectum. SURVEILLANCE interval/FOLLOW-UP: Pending path results on the polyps. SPECIMENS: Yes EBL: Minimal COMPLICATIONS: None QUALITY of prep: Excellent Procedure in detail: The patient gave written consent and was in agreement with the indications, the potential risks as well as the benefits of the procedure. They were taken to the endoscopy suite and laid in the left lateral decubitus position. A timeout was performed and anesthesia was administered which was tolerated well. I started the procedure. Digital rectal and visual examination was performed and grossly within normal limits. A well-lubricated flexible colonoscope was then introduced and passed without any notable difficulty all the way to the cecum identified by the ileocecal valve and the appendiceal orifice. The terminal ileum was briefly, superficially intubated and looked normal. The scope was then slowly withdrawn with the above-noted findings. The patient tolerated the procedure well and was taken to the PACU in hemodynamically stable condition.
--- NOTE | 2024-12-10 08:59 | W.PM.DSUDISC ---
Date of service: 12/10/24 Discharge Plan Disposition Patient Disposition: Home Condition: Good Discharge Details Attending Provider: Frank Patiño Primary Care Provider: Sobia Orosco Home Meds and New Rx's Prescriptions: No Action multivitamin tablet 1 tab PO DAILY fish oil-dha-epa 1,200-144-216 mg capsule PO DAILY Eliquis 2.5 mg tablet See Rx Instructions .ROUTE .COMPLEX Qty: 180 3RF Dose Instruction: TAKE ONE TABLET BY MOUTH TWICE A DAY FOR HALF-WAY PE PROPHYLAXIS Rx Instructions: TAKE ONE TABLET BY MOUTH TWICE A DAY FOR HALF-WAY PE PROPHYLAXIS atorvastatin 40 mg tablet See Rx Instructions .ROUTE .COMPLEX Qty: 90 3RF Dose Instruction: TAKE ONE TABLET BY MOUTH EVERY DAY Rx Instructions: TAKE ONE TABLET BY MOUTH EVERY DAY amlodipine 5 mg tablet 5 mg PO DAILY Qty: 90 3RF bisacodyl [Dulcolax (bisacodyl)] 5 mg tablet,delayed release (DR/EC) 5 mg PO ONCE Qty: 4 0RF Rx Instructions: Take per colonoscopy instructions provided by ordering providers office polyethylene glycol 3350 17 gram/dose powder 17 g PO ONCE Qty: 238 0RF Rx Instructions: Take per colonoscopy instructions provided by ordering providers office Discharge Instructions Additional Instructions: FINDINGS: Numerous polyps were found today. They were all small and nothing to worry about however depending on the results of them you may be recommended to repeat a colonoscopy in 3 years. We will call you and let you know in a week or so. Activity:: Activity as Tolerated Diet:: As Tolerated Discharge Orders Discharge Orders: Discharge Order (Routine); Ordered 12/10/24 Ordered By: Frank Patiño
[2024-12-10 09:14] VITALS: BMI 37.3
--- NOTE | 2024-12-10 09:14 | ANES.PREOP_ITS ---
General Info Date of Service Date Performed: 12/10/24 Height: 5 ft 8 in Weight: 111.3 kg Body Mass Index (BMI): 37.3 Surgical Procedure: Operation Date: 12/10/24 09:05 Proposed Procedure Side Surgeon mirela Patiño MD Meds Allergies and Home Medications Allergies Allergy/AdvReac Type Severity Reaction Status Date / Time lisinopril AdvReac dizzines Verified 12/10/24 08:06 and cough Home Medication ?Medication ?Instructions ?Recorded multivitamin 1 tab PO DAILY 10/13/18 amlodipine 5 mg tablet 5 mg PO DAILY #90 tabs 08/03/24 apixaban 2.5 mg tablet (Eliquis) See Rx Instructions .Route 08/03/24 .COMPLEX #180 tabs atorvastatin 40 mg tablet See Rx Instructions .Route 08/03/24 .COMPLEX #90 tabs fish oil-dha-epa 1,200 mg-144 cap PO DAILY 08/03/24 mg-216 mg capsule bisacodyl 5 mg tablet,delayed 5 mg PO ONCE #4 tabs 11/12/24 release (Dulcolax (bisacodyl)) polyethylene glycol 3350 17 17 g PO ONCE #238 grams 11/12/24 gram/dose oral powder Current Visit Medications: Current Medications Generic Name Dose Route Start Last Admin Trade Name Freq PRN Reason Stop Dose Admin Ringer's Solution 1,000 mls @ 80 mls/hr 12/10/24 06:00 12/10/24 08:05 IV 12/10/24 23:59 80 mls/hr INFUSION VIDHI Administration IV Miscellaneous Supplies 1 each 12/10/24 06:00 Iv Access IV 12/10/24 23:59 DIRECTED VIDHI Sodium Chloride 0 ml 12/10/24 06:00 Normal Saline Flush 10 Ml Syr IV 12/10/24 23:59 PRN PRN Sodium Chloride 0 ml 12/10/24 06:00 Normal Saline 10 Ml Vial IJ 12/10/24 23:59 DIRECTED PRN Sterile Water 0 ml 12/10/24 06:00 Water,Injection,Sterile 10 Ml Vial IJ 12/10/24 23:59 DIRECTED PRN PFSH Active Problems Active Problems: Problem Status Onset Code Blepharitis of both eyes Acute H01.003, H01.006 Postinflammatory hyperpigmentation Acute L81.0 Actinic keratosis Acute L57.0 Chronic anticoagulation Acute Z79.01 Pulmonary embolism and infarction Resolved ~05/2018 I26.99 Pulmonary hypertension Resolved ~05/2018 I27.20 Other and unspecified hyperlipidemia Chronic E78.5 Essential hypertension Chronic I10 Adult BMI > 30 Chronic Medical History Medical History Acute medial meniscus tear s/p surgery 2008 Adult BMI > 30 Essential hypertension Was on lisinopril in the past & did not tolerate (fatigue); controlled with LSMs - at-home monitoring 110-130s/70-80s History of multiple concussions Low back pain with right-sided sciatica Intermittent issue Other and unspecified hyperlipidemia Did not tolerate simvastatin well in the past; 07/2015 labs: 10-year ASCVD risk = ~8% --> started atorvastatin --> pt never took; 08/2018 labs: 10-year ASCVD risk = ~8.4% --> discussed re-starting a statin and pt would like to work on LSMs first; 02/2020: 10.3% --> again recommended a statin Pain, joint, shoulder has improved after receiving Crtizone shot prepatellar Bursitis Pulmonary embolism and infarction (~05/2018) S/p negative thrombophilia workup with [facility] Hematology; Hematology recommends indefinite anticoagulation with reduced prophylactic dose of 2.5 mg BID (see 08/29/2018 Hematology note) Pulmonary hypertension (~05/2018) Following B/L PE 05/2018 (50-55 mmHg); 08/01/2018 [facility] Pulmonology consult: repeat echo PRN if sx recur Tubular adenoma (01/03/16) Surgical History Surgical History Colonoscopy - IV Sedation (01/03/16) medial meniscus tear L knee. S/p surgery 2008 Tobacco Smoking/Tobacco Use Status: Former Tobacco Use Alcohol Alcohol Intake: current Alcohol intake frequency: holidays/special occasions only Substance Use Substance use: Never Substance use type: does not use Vital Signs and Lab Results Vital Signs Most Recent Vital Signs in EMR: Most Recent Vital Signs Temp Pulse Resp BP Pulse Ox 36.7 C 67 18 131/80 98 12/10/24 07:46 12/10/24 07:46 12/10/24 07:46 12/10/24 07:46 12/10/24 07:46 Lab Results Blood Type / Crossmatch: No Data to Display Complete Blood Count: No Data to Display Complete Metabolic Panel: No Data to Display Liver Function Panel: No Data to Display Coagulation Panel: No Data to Display Cardiac Panel: No Data to Display Arterial Blood Gas: No Data to Display Venous Blood Gas: No Data to Display Pancreas Panel: No Data to Display Thyroid Panel: No Data to Display Infectious Disease: No Data to Display Blood Cultures: No Data to Display Toxicology Panel: No Data to Display Anesthesia Assessment and Plan Anesthesia History Personal History: No History of Anesthesia Complications Family History: No Family History of Anesthesia Complications Exercise Tolerance Exercise Tolerance: Metabolic Equivalents>4 Pertinent Negatives Pertinent Negatives: No Symptoms of GERD Cardiac & Pulmonary Exam Cardiac Exam: Normal S1/S2 Heart Sounds Pulmonary Exam: Clear Bilateral Breath Sounds Implantable Cardiac Device Does patient have a Pacemaker or an ICD?: No Airway Exam Known Difficult Airway: No Mallampati Class: 2 Mouth Opening: Normal (> 3cm) Thyromental Distance: Greater than 3 cm Neck Range of Motion: Full ROM Neck Circumference: Normal Teeth Condition: Normal Dentition ASA Classification ASA Score: ASA 2 Emergency Case?: No NPO Status NPO Status: NPO Clears >2 hours, Solids >8 hours Anesthesia Plan Resuscitation Status: Full Code Anesthesia Technique: General Anesthesia Airway Planned: Natural Airway Monitors Used: Standard Monitors
--- NOTE | 2024-12-10 09:26 | BOWEL_PTH ---
PATIENT: Javier Schrader LOC: [facility] U#:[id number] AGE/SX: 64/M ROOM: RE12/10/[address]: Frank Patiño : 1960 BED: DIS: 12/10/2024 SPEC #: [id number] RECD: 12/10/24 12:59 STATUS: LUZ ELENA RE #: [id number] ANDREW: 12/10/24 09:[address]: Frank Patiño DEPT: Surgical Specimen RECD BY: Whitney Che ENTERED: 12/10/24 13:00 SP TYPE: Bowel OTHR DR: Sobia Orosco APRN Tissues: 1 - BIOPSY BOWEL 2 - BIOPSY BOWEL 3 - BIOPSY BOWEL 4 - BIOPSY BOWEL 5 - BIOPSY BOWEL 6 - BIOPSY BOWEL Procedures: GROSS AND MICRO LEVEL 4 Comments: [id number]
[2024-12-10 09:52] VITALS: BP 86/69; PULSE 68; RESP 18; TEMP 36.3; O2SAT 93
--- NOTE | 2024-12-10 10:01 | W.ANESPOSTOP ---
Postoperative Evaluation Date, Time and Location Date Performed: 12/10/24 Time Performed: 10:01 Patient Location: Day Surgery Unit Vital Signs Most Recent Imported Vital Signs: Most Recent Vital Signs Temp Pulse Resp BP Pulse Ox 36.3 C L 68 18 86/69 L 93 12/10/24 09:52 12/10/24 09:52 12/10/24 09:52 12/10/24 09:52 12/10/24 09:52 Assessment Mental Status: Awake (Alert & Oriented to Patient Baseline) Airway and Respiratory Function: Patent airway with normal (patient baseline) respiratory exam Cardiovascular Function: Hemodynamically Stable Hydration Status: Adequately Hydrated Nausea & Vomiting: No Nausea or Vomiting Pain: Pt. Denies Any Pain Peripheral Nerve Block: Patient did not receive a nerve block
[2024-12-10 10:18] VITALS: BP 115/72; PULSE 71; RESP 20; TEMP 36.3; O2SAT 96
--- NOTE | 2024-12-10 10:40 | SUR.PHASEII ---
Pt ambulated to private car by RN, discharge instructions reviewed with . 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 Pt left [facility] parking lot in passengers seat. Watched the pt vehicle cross hospital drive into rehab. Pt and both got out of vehicle and pt got into drivers side and drove out of rehab. Team notified of this.
== END 2024-12-10 10:38 | disposition home or self-care (01) ==
PROVIDERS: PCP Nurse Practitioner; Visit Provider Student in an Organized Health Care Education/Training Program
PROC: 0DJD8ZZ Inspection of Lower Intestinal Tract, Via Natural or Artificial Opening Endoscopic (ICD-10-PCS; CPT 45378; principal; 2024-12-10 09:00)
DX: Z12.11 Encounter for screening for malignant neoplasm of colon (principal); D37.4 Neoplasm of uncertain behavior of colon; K64.0 First degree hemorrhoids; Z86.0101 Personal history of adenomatous and serrated colon polyps; K62.1 Rectal polyp
CPT/HCPCS: 45380; 88305; J2704